=== PATIENT | female | born 1995 | race Caucasian/White ===

== ENCOUNTER 2021-03-24 13:12 | Emergency (ER) | payer OTHER, SELFPAY ==
--- NOTE | 2021-03-24 13:17 | ED.URI ---
HPI - URI/Sore Throat General Chief Complaint: Upper Respiratory Infection Stated Complaint: sore throat/cough/body aches/chills/light headed Time Seen by Provider: 03/24/21 13:17 Source: patient and RN notes reviewed History of Present Illness HPI Narrative: Patient is a 25-year-old female who presents the urgent care with complaints of sore throat, chills, lightheadedness, postnasal drainage, headache and cough. Patient states that her symptoms started on Tuesday. 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 Patient was also tested today however will not obtain her results for couple days. Patient is tested twice weekly. Patient has also had the maternal vaccine. Denies of any known fevers, nausea, vomiting. Denies of any known contact with Covid. No other acute complaints. No acute distress noted. Patient aware of plan of care. Some parts of this dictation were generated by voice recognition software and may contain typographical and/or grammatical inaccuracies. Related Data Allergies Allergy/AdvReac Type Severity Reaction Status Date / Time sulfamethoxazole Allergy Unknown HIVES Verified 10/21/17 13:57 trimethoprim Allergy Unknown HIVES Verified 10/21/17 13:57 Review of Systems Review of Systems: CONSTITUTIONAL: Reports of chills EYES: Denies visual changes, redness, or discharge. ENT: Reports of sore throat, postnasal drainage CARDIOVASCULAR: Denies chest pain, palpitations, or edema. RESPIRATORY: Ports of cough without dyspnea GASTROINTESTINAL: Denies abdominal pain, nausea, vomiting, or diarrhea. GENITOURINARY: Denies dysuria or hematuria. SKIN: Denies rash or itching. MUSCULOSKELETAL: Denies back pain, joint pain, or myalgia. NEUROLOGIC: Reports of lightheadedness All other systems reviewed are negative, except as documented in HPI. PMFSH Comments At the time of my signature, I reviewed and agree with the nursing past medical, surgical, social, and family history. There is no relevant family history pertinent to the patient complaint. Exam Narrative: GENERAL: This is a well-nourished, well-developed patient, in no apparent distress. HEAD: normocephalic, atraumatic. EYES: PERRL. Sclera clear/white. Vision is grossly intact. EARS: External ears normal, auditory canals clear and without drainage, TMs normal without perforation. Hearing grossly intact. NOSE: External nose normal with no obvious nasal discharge, nares without redness, clear rhinorrhea. THROAT: Mucous membranes moist, posterior pharynx clear. Moderate postnasal drainage NECK: Neck supple, non-tender without lymphadenopathy, masses or thyromegaly. CARDIOVASCULAR: Regular rate and rhythm without murmurs, gallops, or rubs. RESPIRATORY: Clear to auscultation. Breath sounds equal bilaterally. No wheezes, rales, or rhonchi. Mild cough on exam with deep breathing SKIN: warm, intact with no suspicious lesions or rash, good texture and turgor. NEURO: awake, alert, and oriented to person, place and time. There were no obvious focal neurologic abnormalities. EXTREMITIES: No clubbing, cyanosis, or edema. Course Vital Signs Vital signs: Vital Signs Temperature 97.9 F 03/24/21 13:18 Pulse Rate 96 03/24/21 13:18 Respiratory Rate 16 03/24/21 13:18 Blood Pressure 128/78 03/24/21 13:18 Pulse Oximetry 100 03/24/21 13:18 Temperature 97.9 F 03/24/21 13:18 Pulse Rate 96 03/24/21 13:18 Respiratory Rate 16 03/24/21 13:18 Blood Pressure 128/78 03/24/21 13:18 Pulse Oximetry 100 03/24/21 13:18 Reviewed MDM - URI/Sore Throat MDM Narrative Medical decision making narrative: Reviewed lab results with the patient. She is aware that strep swab was negative. Educated patient on culture we will call within 72 hours if culture is positive and antibiotics are necessary. Rapid Covid test was also negative. Advised the patient to complete the steroid regimen as pres
[2021-03-24 13:18] VITALS: BP 128/78; PULSE 96; RESP 16; TEMP 36.6; O2SAT 100
== END 2021-03-24 13:42 | disposition home or self-care (01) ==
PROVIDERS: Emergency Provider Nurse Practitioner Family
DX: J06.9 Acute upper respiratory infection, unspecified (principal); Z20.822 Contact with and (suspected) exposure to COVID-19
CPT/HCPCS: 87081; 87426; 87880; 99203; C9803; G0463

== ENCOUNTER 2022-01-12 11:10 | Outpatient (CLI) | payer OTHER, SELFPAY ==
[2022-01-12 11:37] VITALS: BP 126/85; PULSE 100
[2022-01-12 11:46] VITALS: BP 112/84; PULSE 91
[2022-01-12 11:50] LABS: Basophils Percent Auto 0.3 % (0.2-1.2); Eosinophils Absolute Auto 0.1 K/mm3 (0-0.3); Eosinophils Percent Auto 0.8 % (0-4.4); Hematocrit 32.2 % (37.0-47.0); Hemoglobin 10.8 g/dL (12.0-15.0); Immature Granulocyte Absolute 0.08 K/mm3 (0.00-0.031); Immature Granulocyte Percent A 0.9 % (0-0.5); Lymphocytes Absolute Auto 1.53 K/mm3 (0.9-3.2); Lymphocytes Percent Auto 17.8 % (18.3-44.2); Mean Corpuscular HGB Conc 33.5 g/dl (32-36); Mean Corpuscular Hemoglobin 29.2 pg (26-34); Mean Platelet Volume 11.3 fl (7.4-10.4); Monocytes Absolute Auto 0.6 K/mm3 (0.1-0.6); Monocytes Percent Auto 6.5 % (2.6-8.5); Neutrophils Absolute Auto 6.3 K/mm3 (1.3-6.7); Neutrophils Percent Auto 73.7 % (45.5-73.1); Platelet Count Result 247 k/mm3 (150-375); Red Cell Distribution Width 13.6 % (11.5-14.5); White Blood Count 8.6 K/mm3 (4.5-10.0)
[2022-01-12 11:51] LABS: Appearance Urine Slightly Cloudy (Clear); Bilirubin Urine Negative (Negative); Blood Urine Negative (Negative); Glucose Urine UA Negative (Negative); Ketones Urine Negative (Negative); Leukocyte Esterase Ur Trace LEU/UL (NEGATIVE); Nitrate Urine Negative (Negative); Protein Urine Negative (Negative); Specific Grav Ur 1.015 (1.001-1.035); Urobilinogen Urine 0.2 mg/dL (<2.0); pH Urine 7.5 (5.0-9.0)
[2022-01-12 11:55] VITALS: BP 131/87; PULSE 80
[2022-01-12 11:55] LABS: Creatinine Urine 69.6 mg/dL; Total Protein Urine Random 20 mg/dL; Ur Ttl Prot Creatinine Ratio 0.29 mg/mg (0-0.20)
[2022-01-12 11:58] LABS: Bacteria Urine Trace /hpf; Mucus Urine Rare /lpf; RBC Urine 0-2 /hpf (0-2); Squamous Epithelial Cell Urine Few /hpf (Few); WBC Urine 0-3 /hpf (0-3)
[2022-01-12 11:59] LABS: Add Urine Microscopic? YES; Color Urine Light Yellow (Yellow)
[2022-01-12 12:01] VITALS: BP 123/84; PULSE 81
[2022-01-12 12:01] LABS: Alanine Aminotransferase 15 U/L (6-35); Albumin Level 3.4 g/dL (3.5-5.1); Alkaline Phosphatase 154 U/L (38-126); Anion Gap 8 mmol/L (8-16); Aspartate Amino Transferase 20 U/L (14-36); Bilirubin,Total 0.1 mg/dL (0.2-1.3); Blood Urea Nitrogen 6 mg/dL (7-17); Calcium 8.9 mg/dL (8.4-10.2); Carbon Dioxide 19 mmol/L (22-30); Chloride 107 mmol/L (98-107); Estimated Glomerular Filt Rate > 60; Glucose 107 mg/dL (65-110); Potassium 3.3 mmol/L (3.4-5.0); Sodium 134 mmol/L (137-145); Uric Acid 5.2 mg/dL (2.5-7.5)
== END 2022-01-12 12:15 | disposition home or self-care (01) ==
LOC: ANHOBOP 11:13 → ANHOBPP 11:16
PROVIDERS: Visit Provider Obstetrics & Gynecology
DX: O13.9 Gestational [pregnancy-induced] hypertension without significant proteinuria, unspecified trimester (principal); Z3A.00 Weeks of gestation of pregnancy not specified
CPT/HCPCS: 36415; 59025; 80053; 81001; 82570; 84156; 84550; 85025; 87086; 87088; 99199

== ENCOUNTER 2022-01-13 10:00 | Outpatient (CLI) | payer OTHER, SELFPAY ==
[2022-01-13] VITALS (23 sets, daily range): BP systolic 109–129; BP diastolic 72–86; PULSE 76–95; O2SAT 98–100; BMI 37.3
[2022-01-13 11:08] LABS: Basophils Percent Auto 0.3 % (0.2-1.2); Eosinophils Absolute Auto 0.1 K/mm3 (0-0.3); Eosinophils Percent Auto 0.9 % (0-4.4); Hematocrit 31.3 % (37.0-47.0); Hemoglobin 10.4 g/dL (12.0-15.0); Immature Granulocyte Absolute 0.11 K/mm3 (0.00-0.031); Immature Granulocyte Percent A 1.2 % (0-0.5); Lymphocytes Percent Auto 17.6 % (18.3-44.2); Mean Corpuscular HGB Conc 33.2 g/dl (32-36); Mean Corpuscular Hemoglobin 29.1 pg (26-34); Mean Corpuscular Volume 87.7 fl (80-100); Mean Platelet Volume 11.4 fl (7.4-10.4); Monocytes Absolute Auto 0.5 K/mm3 (0.1-0.6); Monocytes Percent Auto 5.5 % (2.6-8.5); Neutrophils Absolute Auto 6.8 K/mm3 (1.3-6.7); Neutrophils Percent Auto 74.5 % (45.5-73.1); Platelet Count Result 236 k/mm3 (150-375); Red Blood Count 3.57 M/mm3 (4.2-5.4); Red Cell Distribution Width 13.5 % (11.5-14.5); White Blood Count 9.1 K/mm3 (4.5-10.0)
[2022-01-13 11:17] LABS: Alanine Aminotransferase 14 U/L (6-35); Albumin Level 3.4 g/dL (3.5-5.1); Alkaline Phosphatase 162 U/L (38-126); Anion Gap 5 mmol/L (8-16); Aspartate Amino Transferase 18 U/L (14-36); Bilirubin,Total 0.2 mg/dL (0.2-1.3); Blood Urea Nitrogen 5 mg/dL (7-17); Calcium 7.8 mg/dL (8.4-10.2); Carbon Dioxide 22 mmol/L (22-30); Chloride 108 mmol/L (98-107); Estimated Glomerular Filt Rate > 60; Glucose 86 mg/dL (65-110); Potassium 3.4 mmol/L (3.4-5.0); Sodium 135 mmol/L (137-145)
[2022-01-13 11:21] LABS: Creatinine Urine 73.3 mg/dL; Total Protein Urine Random 13 mg/dL; Ur Ttl Prot Creatinine Ratio 0.18 mg/mg (0-0.20)
[2022-01-13] MEDS: ACETAMINOPHEN 500 MG TABLET 1000 MG PO (11:40)
== END 2022-01-13 12:45 | disposition home or self-care (01) ==
LOC: ANHOBOP 10:05 → ANHOBPP 10:13
PROVIDERS: Visit Provider Obstetrics & Gynecology
DX: O13.9 Gestational [pregnancy-induced] hypertension without significant proteinuria, unspecified trimester (principal); Z3A.00 Weeks of gestation of pregnancy not specified
CPT/HCPCS: 36415; 59025; 80053; 82570; 84156; 84550; 85025; 99199; A9270

== ENCOUNTER 2022-01-14 10:31 | Outpatient (CLI) | payer OTHER, SELFPAY ==
[2022-01-14 10:55] VITALS: BP 123/84; PULSE 97
--- NOTE | 2022-01-14 10:58 | PM.OBTRLD ---
OB - Triage/Final Diagnosis Visit Information Date of evaluation: 01/14/22 Reason for evaluation: other (hypertension) Comments/Additional reasons for admission: I have assessed the risk for this patient, Lani Beasley, and determined that she would benefit from observation care. Evaluation Vital signs: Vital Signs - 24 hr 01/14/22 10:55 Pulse Rate 97 Blood Pressure 123/84
[2022-01-14 11:00] VITALS: BP 107/63; PULSE 104
[2022-01-14 11:15] VITALS: BP 105/78; PULSE 96
--- NOTE | 2022-01-14 11:26 | PC.NURSE ---
Spoke with Dr. Zay Parra regarding Fiorcet order that wa call in initial orders. Pt is driving. Will transmit Fioricet order for pt to take at home.
[2022-01-14 11:30] VITALS: BP 108/79; PULSE 88
[2022-01-14] MEDS: ACETAMINOPHEN/BUTALBITAL/CAFFEINE 325-50-40 MG TABLET (FIORICET) 1 TAB PO (13:00)
--- NOTE | 2022-01-14 13:00 | PC.NURSE ---
RX per MD is not on Formulary for insurance. Pt advised. Pt to take Fioricet given here on arrival home and call MD in AM if headache persists.
== END 2022-01-14 13:30 | disposition home or self-care (01) ==
LOC: ANHOBOP 10:41 → ANHOBPP 10:41
PROVIDERS: Visit Provider Obstetrics & Gynecology
DX: O13.9 Gestational [pregnancy-induced] hypertension without significant proteinuria, unspecified trimester (principal); Z3A.00 Weeks of gestation of pregnancy not specified
CPT/HCPCS: 59025; 99199; A9270

== ENCOUNTER 2022-01-19 17:59 | Inpatient (IN) | payer OTHER, SELFPAY ==
[2022-01-19] VITALS (12 sets, daily range): BP systolic 102–130; BP diastolic 61–96; PULSE 75–92; RESP 18; TEMP 36.4; BMI 36.1
[2022-01-19 19:30] LABS: Basophils Absolute Auto 0.1 K/mm3 (0.0-0.1); Basophils Percent Auto 0.5 % (0.2-1.2); Eosinophils Absolute Auto 0.1 K/mm3 (0-0.3); Eosinophils Percent Auto 0.8 % (0-4.4); Hematocrit 32.5 % (37.0-47.0); Immature Granulocyte Absolute 0.13 K/mm3 (0.00-0.031); Immature Granulocyte Percent A 1.2 % (0-0.5); Mean Corpuscular HGB Conc 33.8 g/dl (32-36); Mean Corpuscular Hemoglobin 28.9 pg (26-34); Mean Corpuscular Volume 85.5 fl (80-100); Mean Platelet Volume 11.5 fl (7.4-10.4); Monocytes Absolute Auto 0.7 K/mm3 (0.1-0.6); Monocytes Percent Auto 6.2 % (2.6-8.5); Neutrophils Absolute Auto 7.5 K/mm3 (1.3-6.7); Neutrophils Percent Auto 71.3 % (45.5-73.1); Platelet Count Result 276 k/mm3 (150-375); Red Cell Distribution Width 13.8 % (11.5-14.5); White Blood Count 10.5 K/mm3 (4.5-10.0)
[2022-01-19] MEDS: DINOPROSTONE 10 MG VAG INSERT VAGINAL (19:36)
[2022-01-19 19:39] LABS: Uric Acid 4.6 mg/dL (2.5-7.5)
[2022-01-19 19:53] LABS: Alanine Aminotransferase 16 U/L (6-35); Albumin Level 3.6 g/dL (3.5-5.1); Alkaline Phosphatase 165 U/L (38-126); Anion Gap 9 mmol/L (8-16); Aspartate Amino Transferase 21 U/L (14-36); Bilirubin,Total 0.2 mg/dL (0.2-1.3); Blood Urea Nitrogen 7 mg/dL (7-17); Calcium 9.3 mg/dL (8.4-10.2); Carbon Dioxide 20 mmol/L (22-30); Chloride 106 mmol/L (98-107); Estimated Glomerular Filt Rate > 60; Glucose 92 mg/dL (65-110); Potassium 3.6 mmol/L (3.4-5.0); Sodium 135 mmol/L (137-145)
[2022-01-19] MEDS: FAMOTIDINE 20 MG TABLET PO (20:20)
--- NOTE | 2022-01-19 21:30 | WPDANESEPP ---
Anes - Eval Pre Procedure Procedure: Labor epidural Date/Time: 01/19/22 21:30 Surgeon: Zay Parra Preop Diagnosis: Abd pain with contractions Pre Op Diagnosis: Induction of Labor Patient Data Age: 26 Gender: F Height: 1.73 m Weight: 108 kg Last Vital Signs Pulse 87 01/19/22 21:15 BP 111/61 01/19/22 21:15 Allergies Allergy/AdvReac Type Severity Reaction Status Date / Time sulfamethoxazole Allergy Unknown HIVES Verified 10/21/17 13:57 Home Medications Medication Instructions Recorded Confirmed Type No Home Medications 01/04/22 01/04/22 History Laboratory Tests 01/19/22 01/19/22 01/19/22 19:19 19:19 19:19 WBC 10.5 K/mm3 H K/mm3 (4.5-10.0) RBC 3.80 M/mm3 L M/mm3 (4.2-5.4) Hgb 11.0 g/dL L g/dL (12.0-15.0) Hct 32.5 % L % (37.0-47.0) MCV 85.5 fl fl (80-100) MCH 28.9 pg pg (26-34) MCHC 33.8 g/dl g/dl (32-36) RDW 13.8 % % (11.5-14.5) Plt Count 276 k/mm3 k/mm3 (150-375) MPV 11.5 fl H fl (7.4-10.4) Immature Gran % (Auto) 1.2 % H % (0-0.5) Neut % (Auto) 71.3 % % (45.5-73.1) Lymph % (Auto) 20.0 % % (18.3-44.2) [place] % (Auto) 6.2 % % (2.6-8.5) Eos % (Auto) 0.8 % % (0-4.4) Baso % (Auto) 0.5 % % (0.2-1.2) Lymph # (Auto) 2.10 K/mm3 K/mm3 (0.9-3.2) [place] # (Auto) 0.7 K/mm3 H K/mm3 (0.1-0.6) Eos # (Auto) 0.1 K/mm3 K/mm3 (0-0.3) Baso # (Auto) 0.1 K/mm3 K/mm3 (0.0-0.1) Abs Immat Gran (auto) 0.13 K/mm3 H K/mm3 (0.00-0.031) Absolute Neuts (auto) 7.5 K/mm3 H K/mm3 (1.3-6.7) Absolute Nucleated RBC 0.0 K/mm3 K/mm3 (0.0-0.012) Nucleated RBC % 0.0 % % (0.0-0.2) Sodium 135 mmol/L L mmol/L (137-145) Potassium 3.6 mmol/L mmol/L (3.4-5.0) Chloride 106 mmol/L mmol/L (98-107) Carbon Dioxide 20 mmol/L L mmol/L (22-30) Anion Gap 9 mmol/L mmol/L (8-16) BUN 7 mg/dL mg/dL (7-17) Creatinine 0.60 mg/dL L mg/dL (0.7-1.0) Estim Creat Clear Calc Not Reportable Estimated GFR > 60 (59 - ) Glucose 92 mg/dL mg/dL (65-110) Uric Acid 4.6 mg/dL mg/dL (2.5-7.5) Calcium 9.3 mg/dL mg/dL (8.4-10.2) Total Bilirubin 0.2 mg/dL mg/dL (0.2-1.3) AST 21 U/L U/L (14-36) ALT 16 U/L U/L (6-35) Alkaline Phosphatase 165 U/L H U/L (38-126) Total Protein 7.0 g/dL g/dL (6.3-8.2) Albumin 3.6 g/dL g/dL (3.5-5.1) RPR Blood Type Antibody Screen 01/19/22 01/19/22 19:20 19:20 WBC RBC Hgb Hct MCV MCH MCHC RDW Plt Count MPV Immature Gran % (Auto) Neut % (Auto) Lymph % (Auto) [place] % (Auto) Eos % (Auto) Baso % (Auto) Lymph # (Auto) [place] # (Auto) Eos # (Auto) Baso # (Auto) Abs Immat Gran (auto) Absolute Neuts (auto) Absolute Nucleated RBC Nucleated RBC % Sodium Potassium Chloride Carbon Dioxide Anion Gap BUN Creatinine Estim Creat Clear Calc Estimated GFR Glucose Uric Acid Calcium Total Bilirubin AST ALT Alkaline Phosphatase Total Protein Albumin RPR Pending Blood Type O Positive Antibody Screen Negative Patient hx anesthesia problems: none Family hx anesthesia problems: none Results Review: All pre-operative results and documents have been reviewed as part of the pre-operative evaluation. [facility] Past
[2022-01-20] VITALS (188 sets, daily range): BP systolic 71–254; BP diastolic 51–212; PULSE 65–264; RESP 18; TEMP 36.1–36.6; O2SAT 95–100
[2022-01-20] MEDS: LACTATED RINGERS 1,000 ML 125 ML IV CONT ×3 (05:57→14:23)
[2022-01-20] MEDS: OXYTOCIN 30 UNITS/NS 500 ML 30 UNITS/500 ML BAG 6 UNITS IV CONT (05:58)
--- NOTE | 2022-01-20 06:24 | PM.IMHP ---
H&P: HPI History of Present Illness Date/Time: 01/20/22 06:24 Chief Complaint: Elevated blood pressure at term Narrative: 26-year-old 1 para 0 with an EDC of 02/03/2022 confirmed by 7 week ultrasound presents at 38 weeks gestation for induction of labor secondary to elevated blood pressures. She is negative for group B strep. Her cervix is unfavorable. Her blood pressures have been rising with normal PIH labs. [facility] Past Medical History Medical History Anxiety and depression Endometriosis Migraines Obesity and not yet delivered Family History Family History Grandparent Diabetes mellitus Social History Social History Smoking status: Never smoker Second hand tobacco smoke exposure: No Substance use: never Spiritual care concerns: No Meds Home Medications and Allergies Home Medications Medication Instructions Recorded Confirmed Type No Home Medications 01/04/22 01/04/22 History Allergies Allergy/AdvReac Type Severity Reaction Status Date / Time sulfamethoxazole Allergy Unknown HIVES Verified 10/21/17 13:57 Vital Signs Vital Signs - 24 hr 01/19/22 19:42 01/19/22 19:45 01/19/22 20:00 Temperature Pulse Rate 78 92 76 Respiratory Rate Blood Pressure 130/90 118/96 H 123/93 H Pulse Oximetry 01/19/22 20:15 01/19/22 20:30 01/19/22 20:45 Temperature Pulse Rate 92 84 84 Respiratory Rate Blood Pressure 102/68 105/66 106/74 Pulse Oximetry 01/19/22 21:00 01/19/22 21:15 01/19/22 21:30 Temperature Pulse Rate 75 87 88 Respiratory Rate Blood Pressure 108/71 111/61 106/74 Pulse Oximetry 01/19/22 22:21 01/20/22 00:53 01/20/22 01:45 Temperature Pulse Rate 78 70 81 Respiratory Rate Blood Pressure 110/76 113/63 124/83 Pulse Oximetry 01/20/22 04:04 01/20/22 04:27 01/19/22 18:37 Temperature 97.9 F 97.6 F Pulse Rate 79 Respiratory Rate 18 18 Blood Pressure 111/64 Pulse Oximetry 98 01/19/22 20:20 01/20/22 02:20 01/20/22 05:29 Temperature 97.5 F L 97.6 F Pulse Rate 88 Respiratory Rate 18 18 Blood Pressure 123/86 Pulse Oximetry 01/20/22 05:28 01/20/22 05:30 01/20/22 05:45 Temperature 97.8 F Pulse Rate 92 88 Respiratory Rate 18 Blood Pressure 122/79 118/84 Pulse Oximetry 01/20/22 06:02 Temperature Pulse Rate 89 Respiratory Rate Blood Pressure 124/91 H Pulse Oximetry Exam : Speculum Exam - Vagina: normal appearance of the vagina Speculum Exam - Cervix: normal appearance of the cervix ( /. AROM clear. FHTs reassuring) H&P: Results Labs Labs: Short CBC 01/19/22 Range/Units 19:19 WBC 10.5 H (4.5-10.0) K/mm3 Hgb 11.0 L (12.0-15.0) g/dL Hct 32.5 L (37.0-47.0) % Plt Count 276 (150-375) k/mm3 BMP 01/19/22 19:19 Sodium 135 L Potassium 3.6 Chloride 106 Carbon Dioxide 20 L BUN 7 Creatinine 0.60 L Glucose 92 Calcium 9.3 Liver Function 01/19/22 Range/Units 19:19 Total Bilirubin 0.2 (0.2-1.3) mg/dL AST 21 (14-36) U/L ALT 16 (6-35) U/L Alkaline Phosphatase 165 H (38-126) U/L Albumin 3.6 (3.5-5.1) g/dL Assessment and Plan Assessment and plan (1) Gestational hypertension: Code(s): O13.9 - Gestational [-induced] hypertension without significant proteinuria, unspecified trimester Status: Acute (2) Term : Code(s): Z34.90 - Encounter for supervision of normal , unspecified, unspecified trimester Status: Acute Plan medical induction of labor. Spontaneous vaginal delivery is expected. She is an epidural candidate. [facility] labs are normal
--- NOTE | 2022-01-20 07:20 | WPDANESEPPF ---
Anes - Initial Pre Proc Eval Procedure: labor epidural Date/Time: 01/20/22 07:20 Surgeon: Jose Antonio Parra MD Pre Op Diagnosis: labor pain Pre Op Diagnosis: Induction of Labor Patient Data Age: 26 Gender: F Height: 1.73 m Weight: 108 kg Last Vital Signs Temp 36.6 C 01/20/22 06:58 Pulse 93 01/20/22 07:19 Resp 18 01/20/22 05:28 BP 121/82 01/20/22 07:19 Pulse Ox 98 01/20/22 07:16 Allergies Allergy/AdvReac Type Severity Reaction Status Date / Time sulfamethoxazole Allergy Unknown HIVES Verified 10/21/17 13:57 Home Medications Medication Instructions Recorded Confirmed Type No Home Medications 01/04/22 01/04/22 History Laboratory Tests 01/19/22 01/19/22 01/19/22 19:19 19:19 19:19 WBC 10.5 K/mm3 H K/mm3 (4.5-10.0) RBC 3.80 M/mm3 L M/mm3 (4.2-5.4) Hgb 11.0 g/dL L g/dL (12.0-15.0) Hct 32.5 % L % (37.0-47.0) MCV 85.5 fl fl (80-100) MCH 28.9 pg pg (26-34) MCHC 33.8 g/dl g/dl (32-36) RDW 13.8 % % (11.5-14.5) Plt Count 276 k/mm3 k/mm3 (150-375) MPV 11.5 fl H fl (7.4-10.4) Immature Gran % (Auto) 1.2 % H % (0-0.5) Neut % (Auto) 71.3 % % (45.5-73.1) Lymph % (Auto) 20.0 % % (18.3-44.2) [place] % (Auto) 6.2 % % (2.6-8.5) Eos % (Auto) 0.8 % % (0-4.4) Baso % (Auto) 0.5 % % (0.2-1.2) Lymph # (Auto) 2.10 K/mm3 K/mm3 (0.9-3.2) [place] # (Auto) 0.7 K/mm3 H K/mm3 (0.1-0.6) Eos # (Auto) 0.1 K/mm3 K/mm3 (0-0.3) Baso # (Auto) 0.1 K/mm3 K/mm3 (0.0-0.1) Abs Immat Gran (auto) 0.13 K/mm3 H K/mm3 (0.00-0.031) Absolute Neuts (auto) 7.5 K/mm3 H K/mm3 (1.3-6.7) Absolute Nucleated RBC 0.0 K/mm3 K/mm3 (0.0-0.012) Nucleated RBC % 0.0 % % (0.0-0.2) Sodium 135 mmol/L L mmol/L (137-145) Potassium 3.6 mmol/L mmol/L (3.4-5.0) Chloride 106 mmol/L mmol/L (98-107) Carbon Dioxide 20 mmol/L L mmol/L (22-30) Anion Gap 9 mmol/L mmol/L (8-16) BUN 7 mg/dL mg/dL (7-17) Creatinine 0.60 mg/dL L mg/dL (0.7-1.0) Estim Creat Clear Calc Not Reportable Estimated GFR > 60 (59 - ) Glucose 92 mg/dL mg/dL (65-110) Uric Acid 4.6 mg/dL mg/dL (2.5-7.5) Calcium 9.3 mg/dL mg/dL (8.4-10.2) Total Bilirubin 0.2 mg/dL mg/dL (0.2-1.3) AST 21 U/L U/L (14-36) ALT 16 U/L U/L (6-35) Alkaline Phosphatase 165 U/L H U/L (38-126) Total Protein 7.0 g/dL g/dL (6.3-8.2) Albumin 3.6 g/dL g/dL (3.5-5.1) RPR Blood Type Antibody Screen 01/19/22 01/19/22 19:20 19:20 WBC RBC Hgb Hct MCV MCH MCHC RDW Plt Count MPV Immature Gran % (Auto) Neut % (Auto) Lymph % (Auto) [place] % (Auto) Eos % (Auto) Baso % (Auto) Lymph # (Auto) [place] # (Auto) Eos # (Auto) Baso # (Auto) Abs Immat Gran (auto) Absolute Neuts (auto) Absolute Nucleated RBC Nucleated RBC % Sodium Potassium Chloride Carbon Dioxide Anion Gap BUN Creatinine Estim Creat Clear Calc Estimated GFR Glucose Uric Acid Calcium Total Bilirubin AST ALT Alkaline Phosphatase Total Protein Albumin RPR Pending Blood Type O Positive Antibody Screen Negative Patient hx anesthesia problems: none Family hx anesthesia problems: none Results Review: All pre-operative results
[2022-01-20] MEDS: ONDANSETRON INJ 4 MG/2 ML VIAL IV PUSH ×2 (07:59→14:21)
[2022-01-20 09:19] LABS: Rapid Plasma Reagin Non-Reactive (NonReactive)
[2022-01-20] MEDS: SODIUM CHLORIDE 0.9% IV 200 ML 400 ML I-UTERINE (15:20)
--- NOTE | 2022-01-20 16:02 | PM.OBPNLAB ---
Pain Control Date/time seen: 01/20/22 16:02 Pain control: tolerating well and epidural Pelvic Exam Dilation (cm): 10 Effacement (%): 100 station: +1 Amniotic membrane status: Ruptured Contractions Monitor mode: Internal
--- NOTE | 2022-01-20 16:48 | PM.OBPRVD ---
OB - Delivery Note Procedure Delivery date: 01/20/22 Procedure: mil Events: Gestational Hypertension Induction method: AROM Delivery augmentation: Pitocin Delivery monitor: External FHT and Internal Uterine Route of delivery: Episiotomy description: None Laceration Description: Perineal - 1st Degree Delivery repair: vicryl Specimen: No Quantitative Blood Loss (ml): 259 Anesthesia type: Local Disposition: Floor Jumping [place] Baby Date of : 01/20/22 Time of : 16:32 Weeks of gestation at delivery: 39 gender: Female Weight (pounds): 6 Weight (ounces): 14 presentation: vertex position: Right Occiput Anterior Placenta delivery description: Spontaneous Cord Vessel Description: 3 Vessels score one minute: 8 score five minutes: 9
[2022-01-20] MEDS: IBUPROFEN 600 MG TABLET PO (17:25)
[2022-01-20] MEDS: ACETAMINOPHEN 325 MG TABLET 650 MG PO (18:07)
[2022-01-20] MEDS: BENZOCAINE 20% AER SPR (*SP) 56 GM CAN 1 SPRAY TOPICAL (18:09)
[2022-01-20] MEDS: WITCH HAZEL 40 PADS 1 PAD TOPICAL (18:09)
--- NOTE | 2022-01-20 19:02 | PC.NURSE ---
Patient transferred to post room #291 per wheelchair from labor and delivery. Support person present. Oriented to unit, room, information board, rooming in, admission packet and security measures. Patient verbalizes understanding.
[2022-01-20] MEDS: DOCUSATE SODIUM 100 MG CAPSULE PO (22:50)
[2022-01-21 00:25] VITALS: BP 133/74; PULSE 103; RESP 18; TEMP 36.6
[2022-01-21 04:40] VITALS: BP 103/64; PULSE 91; RESP 16; TEMP 36.8
[2022-01-21 05:11] LABS: Hematocrit 25.8 % (37.0-47.0); Hemoglobin 8.9 g/dL (12.0-15.0)
--- NOTE | 2022-01-21 06:21 | P.PNOB_ITS ---
OB - PN: Subj Subjective Date/time seen: 01/21/22 06:21 Patient comments: no complaints, pain well controlled and flatus present [place] baby status: doing well and nursing well OB - PN: Obj Data Labs CBC & Chem 7: 01/21/22 04:46 01/19/22 19:19 Labs: Laboratory Results - last 24 hr 01/19/22 01/21/22 19:20 04:46 Hgb 8.9 L Hct 25.8 L RPR Non-reactive OB - PN A/P Assessment and Plan (1) Gestational hypertension: Code(s): O13.9 - Gestational [-induced] hypertension without significant proteinuria, unspecified trimester Status: Acute (2) Term : Code(s): Z34.90 - Encounter for supervision of normal , unspecified, unspecified trimester Status: Acute Plan day: 1 Plan: routine care Time Spent With Patient Time: Total time spent is greater than 50% in coordination of care (as documented) at patient's floor/unit and/or counseling patient: Time with patient: less than 15 minutes
--- NOTE | 2022-01-21 06:41 | PM.DS ---
DS: Admitting Diagnosis Discharge Date Admitting Diagnosis term with gestational hypertension DS: Discharge Diagnosis Discharge Diagnosis (1) Gestational hypertension: Code(s): O13.9 - Gestational [-induced] hypertension without significant proteinuria, unspecified trimester Status: Acute (2) Term : Code(s): Z34.90 - Encounter for supervision of normal , unspecified, unspecified trimester Status: Acute DS: Summary Hospital Course Reason for hospitalization: induction labor at term secondary to elevated blood pressure Hospital Course: patient was admitted for induction of labor at term for elevated blood pressure she underwent spontaneous vaginal delivery. The her hospital course was unremarkable. She remained afebrile. She was up, voiding difficulty ambulating voiding difficulty and generally without complaints Time Spent with Patient Time attestation: Total time spent providing and/or coordinating discharge services: DS: Data Data Completed and Pending Labs on day of discharge: Labs from last 24 hours 01/21/22 01/19/22 04:46 19:20 Hgb 8.9 L Hct 25.8 L RPR Non-reactive Discharge Plan Discharge Attending physician on discharge: Jose Antonio Black Discharging Clinician: Jose Antonio Black Patient Disposition: Home, Self-Care Activity: may shower, no straining and pelvic rest Diet: heart healthy Wound Care Instructions: follow printed instructions Patient Instructions: Antibiotic Form Stand Alone Forms: General Discharge Information Follow-up/Referrals: Jose Antonio Black MD [Physician] - Discharge Medications: No Action No Home Medications Date of admission: 01/19/22 17:59 Primary Care Provider: PHYSICIAN NOT ON STAFF,NONSTAFF Admitting Provider: Jose Antonio Black Attending physician on admission: Jose Antonio Black Condition: Stable
[2022-01-21 07:45] VITALS: BP 124/78; PULSE 88; RESP 18; TEMP 36.2; O2SAT 100
--- NOTE | 2022-01-21 08:47 | PC.NURSE ---
Received report of mother on a feeding plan and mother desires to go home at 24 hours.
[2022-01-21] MEDS: DOCUSATE SODIUM 100 MG CAPSULE PO ×2 (09:04→16:58)
[2022-01-21] MEDS: POLYSACCHARIDE IRON COMPLEX 150 MG CAPSULE PO ×2 (09:04→16:58)
[2022-01-21] MEDS: IBUPROFEN 600 MG TABLET PO ×2 (09:05→16:58)
--- NOTE | 2022-01-21 09:59 | PC.NURSE ---
[id number] Introductions were made, then consulted with patient to assess needs related to . Mother led the conversation with her experience feeding her so far. She has attempted to breastfeed infant with a nipple shield with no effective latch and plans to supplement and pump. Breast assessment visualizes smooth nipples and a small bruise on areola above the nipple area. Mother works well with her with encouragement and education. Encouraged understanding of the benefits of skin to skin (unwrapping infant and placing vertically on her chest), responsive feeding and how to watch for early feeding signs, frequency of feeding on demand about every 8-12 times in 24 hours (every 2-3 hours), milk production, duration of feeding, signs of adequate intake/output and how to record on the feeding sheet. Reviewed positioning and ear, shoulder, hip alignment, supporting the breast, asymmetrical latch (off-center), and leading with the chin with a big open side gape. is sleepy and reluctant and on rare moments demonstrates feeding cues, then after is led to the breast falls asleep. Family shown stimulation techniques to encouraged to wake to feed. Nipple care reviewed with optimal latch and good positioning. Encouraged mother to pump to comfort every 3 hours 1-2 times at night for milk production. Assisted mother with supplementing with bottle. is a poor plywood layup line back feeder, sucks rarely and at times the formula rolls out of 's mouth. Nipple shield provided prior to shift to mother due to ineffective . Reviewed good handwashing, cleaning the nipple shield and application. Discussed with mom the nipple shield precautions, possible complications associated with the risks and benefits. Reviewed practicing with a nipple shield, then without and how to protect the milk supply and production. Mother is using her own personal pump from [employer] for pumping to stimulate milk production. Instructions given on cleaning, care, usage, that there should be no pain, pumping schedule for milk production, collection, and storage of human milk. Mother encouraged to pump every 3 hours (8 times in 24 hours 1-2 times at night). Mom voiced understanding of the importance of hand expression and shared that she has expressed some colostrum. Resources used to facilitate learning were used with the mom and baby guide. Mother voiced understanding of responsive feedings, stimulating with skin to skin, hand expressed colostrum, touch, talking to to encourage if it has been 2 -3 hours since the start of the last , to call if does not latch or there is discomfort with . Reported to the primary RN.
--- NOTE | 2022-01-21 11:31 | PC.NURSE ---
[id number] RN called to the room for assistance with pumped human milk questions. RN assisted parents with collection of human milk, educating with syringe feeding infant while sucking on a clean finger. Father of baby demonstrates understanding. Parents choose to supplement formula with a syringe as well. Discussed, paced bottle feeding as an option. RN suggested hand expression or pumping to stimulate the breast prior to attempting to breastfeed. Parents voiced understanding the education and calling for assistance if doesn't wake to feed, doesn't latch to the breast or there is pain with latching. Reported to primary RN.
[2022-01-21] MEDS: ACETAMINOPHEN 325 MG TABLET 650 MG PO ×2 (11:58→16:59)
[2022-01-21 12:07] VITALS: BP 112/69; PULSE 81; RESP 16; TEMP 36.1; O2SAT 99
--- NOTE | 2022-01-21 12:49 | WPDANLDPN2 ---
Anes-Prog Note L&D Date/Time: 01/21/22 12:49 Comfortable throughout: labor and delivery Epidural/Spinal procedure site: clean & non-tender Neuro status: Neuro function grossly intact. Cardiovascular status: normal Respiratory status: normal Airway patency: baseline Mental status: baseline Post-Op hydration status: normal Vital Signs: Last Vital Signs Temp 97 F L 01/21/22 12:07 Pulse 81 01/21/22 12:07 Resp 16 01/21/22 12:07 BP 112/69 01/21/22 12:07 Pulse Ox 99 01/21/22 12:07 O2 Del Method Room Air 01/20/22 19:10 Pain score (VAS): 0 I/O: Intake & Output 01/20/22 01/21/22 01/21/22 23:59 07:59 15:59 Intake Total 0 Output Total 374 Balance -374 Patient feedback: Patient satisfied with anesthetic care.
[2022-01-21 16:30] VITALS: BP 131/88; PULSE 84; RESP 16; TEMP 36.8
[2022-01-21] MEDS: FAMOTIDINE 20 MG TABLET PO ×2 (17:02→17:15)
[2022-01-21 20:40] VITALS: BP 122/83; PULSE 75; RESP 16; TEMP 36.3
[2022-01-22 07:35] VITALS: BP 122/75; PULSE 83; RESP 16; TEMP 36.3; O2SAT 99
[2022-01-22] MEDS: POLYSACCHARIDE IRON COMPLEX 150 MG CAPSULE PO (09:31)
[2022-01-22] MEDS: DOCUSATE SODIUM 100 MG CAPSULE PO (09:31)
[2022-01-22] MEDS: IBUPROFEN 600 MG TABLET PO (09:34)
[2022-01-22] MEDS: LANOLIN (LANSINOH) 7.5 GM CREAM 1 APPLIC TOPICAL (09:34)
[2022-01-25 08:15] VITALS: BP 131/86; PULSE 88; RESP 20; TEMP 37.4; O2SAT 98
--- NOTE | 2022-02-01 22:11 | P.PNOB_ITS ---
OB - Triage/Final Diagnosis Visit Information Reason for evaluation: threatened labor Comments/Additional reasons for admission: I have assessed the risk for this patient, Lani Beasley, and determined that she would benefit from observation care. Evaluation Laboratory results: Laboratory Tests 01/19/22 01/19/22 01/19/22 19:19 19:19 19:19 WBC 10.5 H RBC 3.80 L Hgb 11.0 L Hct 32.5 L MCV 85.5 MCH 28.9 MCHC 33.8 RDW 13.8 Plt Count 276 MPV 11.5 H Immature Gran % (Auto) 1.2 H Neut % (Auto) 71.3 Lymph % (Auto) 20.0 Crockett % (Auto) 6.2 Eos % (Auto) 0.8 Baso % (Auto) 0.5 Lymph # (Auto) 2.10 Crockett # (Auto) 0.7 H Eos # (Auto) 0.1 Baso # (Auto) 0.1 Abs Immat Gran (auto) 0.13 H Absolute Neuts (auto) 7.5 H Absolute Nucleated RBC 0.0 Nucleated RBC % 0.0 Sodium 135 L Potassium 3.6 Chloride 106 Carbon Dioxide 20 L Anion Gap 9 BUN 7 Creatinine 0.60 L Estim Creat Clear Calc Not Reportable Estimated GFR > 60 Glucose 92 Uric Acid 4.6 Calcium 9.3 Total Bilirubin 0.2 AST 21 ALT 16 Alkaline Phosphatase 165 H Total Protein 7.0 Albumin 3.6 RPR Blood Type Antibody Screen 01/19/22 01/19/22 01/21/22 19:20 19:20 04:46 WBC RBC Hgb 8.9 L Hct 25.8 L MCV MCH MCHC RDW Plt Count MPV Immature Gran % (Auto) Neut % (Auto) Lymph % (Auto) Crockett % (Auto) Eos % (Auto) Baso % (Auto) Lymph # (Auto) Crockett # (Auto) Eos # (Auto) Baso # (Auto) Abs Immat Gran (auto) Absolute Neuts (auto) Absolute Nucleated RBC Nucleated RBC % Sodium Potassium Chloride Carbon Dioxide Anion Gap BUN Creatinine Estim Creat Clear Calc Estimated GFR Glucose Uric Acid Calcium Total Bilirubin AST ALT Alkaline Phosphatase Total Protein Albumin RPR Non-reactive Blood Type O Positive Antibody Screen Negative
--- NOTE | 2022-02-10 07:18 | PM.DS ---
DS: Admitting Diagnosis Discharge Date 01/22/22 Admitting Diagnosis gestational hypertension DS: Discharge Diagnosis Discharge Diagnosis (1) Gestational hypertension: Code(s): O13.9 - Gestational [-induced] hypertension without significant proteinuria, unspecified trimester Status: Acute DS: Summary Hospital Course Reason for hospitalization: Headaches Hospital Course: Patient was admitted legs she was observed with normal pH labs she was to follow up in 1 week Time Spent with Patient Time attestation: Total time spent providing and/or coordinating discharge services: Discharge Plan Discharge Attending physician on discharge: Jose Antonio Black Consulting providers: Rashel Tuttle ; Maikel Perez ; Dianne Aguilar Discharging Clinician: Jose Antonio Black Patient Disposition: Home, Self-Care Activity: may shower, no straining and pelvic rest Diet: heart healthy Wound Care Instructions: follow printed instructions Discharge Instructions: Education: Mom and Baby Guide Given to: Mother Follow-Up: Call your delivering provider's office for an appointment to be seen in: 4-6 weeks Mom and baby should come to the [facility] for the follow-up appointment. Appointment Date/Time: January 25, 2022 at 8:00 am What to expect at your follow-up visit: Physical Assessment Call [phone] if you are unable to keep your appointment time. BREAST CARE: * Wear a snug supportive bra. * For engorgement discomfort: Breast Feeding: * Apply warm moist washcloths * Express milk as needed to relieve engorgement * Wear loose clothing * For sore nipples: * Identify correct latch-on * Apply warm moist washcloths before and after nursing * Air dry nipples after nursing * May apply Lansinoh cream to nipples PERINEAL CARE: * Until bleeding stops, use your penelope bottle after urinating * Change your pad frequently throughout the day * You may take sitz baths several times a day (fill your bathtub with warm water and soak for 20 minutes.) Do NOT bathe in the water * No tub baths until seen by your physician - You may shower ACTIVITY: * Rest as much as possible. * Do not exercise or lift anything heavier than your baby (such as laundry or other children.) * Avoid stairs or driving as much as possible. * Do not put anything into the vagina. No douching, tampons, or sexual activity until seen by physician. NOTIFY PHYSICIAN IF YOU HAVE ANY QUESTIONS OR IF ANY OF THE FOLLOWING SYMPTOMS OCCUR: * If your perineum becomes red, swollen, or more painful than what you have experienced in the hospital. * If your vaginal bleeding becomes foul smelling. * If your vaginal bleeding becomes more heavy than a period or if your bleeding changes from pink to bright red. However, you may pass an occasional walnut-sized clot once or twice for the first week . * If you experience a sharp, shooting pain in you calves. * If you discover a hard, reddened area on your breast or if you experience flu-like symptoms. DIET: * Eat regular, well-balanced meals. * Drink plenty of fluids daily. If , drink to thirst. Patient Instructions: Antibiotic Form Stand Alone Forms: General Discharge Information Follow-up/Referrals: Jose Antonio Black MD [Physician] - Other (4-6 weeks ) Discharge Medications: No Action No Home Medications Date of admission: 01/19/22 17:59 Primary Care Provider: PHYSICIAN NOT ON STAFF,NONSTAFF Admitting Provider: Jose Antonio Black Attending physician on admission: Jose Antonio Black Condition: Stable
== END 2022-01-22 11:26 | disposition home or self-care (01) | DRG 560 ==
LOC: ANHLDR 01-20 14:01 → ANHOB2 01-20 19:19
PROVIDERS: Admitting Provider Obstetrics & Gynecology; Visit Provider Obstetrics & Gynecology
DX: O76 Abnormality in fetal heart rate and rhythm complicating labor and delivery (principal); O99.214 Obesity complicating childbirth; O13.4 Gestational [pregnancy-induced] hypertension without significant proteinuria, complicating childbirth; O70.0 First degree perineal laceration during delivery; Z3A.38 38 weeks gestation of pregnancy; Z37.0 Single live birth
CPT/HCPCS: 36415; 80053; 84550; 85014; 85018; 85025; 86592; 86850; 86900; 86901; A9270; J2405; J2590; J2795; J7030; J7120

== ENCOUNTER 2023-07-03 21:07 | Emergency (ER) | payer OTHER, SELFPAY ==
--- NOTE | ~2023-07-03 | US_ITS ---
US OB transvaginal DATE: 07/04/2023 02:38 INDICATION: Vaginal bleeding and abdominal pain. First trimester gestation. TECHNIQUE: Real-time imaging via transvaginal approach COMPARISON: None FINDINGS: Possible early intrauterine gestational sac measuring 0.6 cm consistent with 5 weeks 2 days estimated gestational age. Definitive yolk sac or pole are not demonstrated. Findings may repr esent an early normal or failed gestation. Recommend correlation with beta hCG levels and follow-up p elvic ultrasound imaging. No ovarian or adnexal mass lesion is evident. There is vascular flow to both ovaries. No abnormal girish e fluid collection. IMPRESSION: Probable small early intrauterine gestational sac of the uterus, estimated gestational ag e of 5 weeks 2 days, without definite definitively demonstrated pole or yolk sac. Recommend clinical correlation to differentiate early normal from failed gestation. Reviewed, dictated and finalized at [facility]. Reviewed, dictated and finalized at [facility]. TERIA MANAGER IMPRESSION: Probable small early intrauterine gestational sac of the uterus, es timated gestational age of 5 weeks 2 days, without definite definitively demons trated pole or yolk sac. Recommend clinical correlation to differentiate early normal from alonso led gestation.
[2023-07-03 21:13] VITALS: BP 146/91; PULSE 108; RESP 19; TEMP 36.7; O2SAT 100
[2023-07-03 22:28] VITALS: BP 120/79; PULSE 107; RESP 15; O2SAT 100
[2023-07-03 22:48] LABS: Basophils Absolute Auto 0.1 K/mm3 (0.0-0.1); Basophils Percent Auto 0.9 % (0.2-1.2); Eosinophils Absolute Auto 0.1 K/mm3 (0-0.3); Eosinophils Percent Auto 1.2 % (0-4.4); Hematocrit 34.3 % (37.0-47.0); Hemoglobin 11.3 g/dL (12.0-15.0); Immature Granulocyte Absolute 0.02 K/mm3 (0.00-0.031); Immature Granulocyte Percent A 0.2 % (0-0.5); Lymphocytes Absolute Auto 2.85 K/mm3 (0.9-3.2); Lymphocytes Percent Auto 31.3 % (18.3-44.2); Mean Corpuscular HGB Conc 32.9 g/dl (32-36); Mean Corpuscular Hemoglobin 29.4 pg (26-34); Mean Corpuscular Volume 89.3 fl (80-100); Monocytes Absolute Auto 0.7 K/mm3 (0.1-0.6); Monocytes Percent Auto 7.3 % (2.6-8.5); Neutrophils Absolute Auto 5.4 K/mm3 (1.3-6.7); Neutrophils Percent Auto 59.1 % (45.5-73.1); Platelet Count Result 307 k/mm3 (150-375); Red Blood Count 3.84 M/mm3 (4.2-5.4); Red Cell Distribution Width 12.7 % (11.5-14.5); White Blood Count 9.1 K/mm3 (4.5-10.0)
--- NOTE | 2023-07-04 00:24 | ED.PREGNANCY ---
HPI - General Chief complaint: Vaginal Bleeding Stated complaint: miscarrage? Time Seen by Provider: 07/03/23 23:22 Source: patient and family (partner (boyfriend Leonel)) Mode of arrival: ambulatory Limitations: no limitations History of Present Illness HPI Narrative: 28 yo female with LMP in May (1st or 2nd week) who presents with spotting for the past few days, only when wipe. She has been getting serial BHCG through Ob[facility] Dr Lilliana Parra given some initial concern for inappropriate rise in BHCG. Vaginal bleeding became slightly heavier yesterday and by Tuesday early afternoon she had to use a panty liner. Passing several clots and having some abdominal cramping. Has not had imaging to confirm IUP. By patient report, serial BHCGs were 54, then 82 then 140 and most recently 1100. Related Data Allergies Allergy/AdvReac Type Severity Reaction Status Date / Time sulfamethoxazole Allergy Unknown HIVES Verified 07/03/23 22:28 [facility] Past Medical History Medical History (Updated 07/05/23 @ 00:00 by Arlene Tam) Anxiety and depression Endometriosis Gestational hypertension Migraines Obesity and not yet delivered Family History Family History Grandparent Diabetes mellitus Social History Social History Smoking status: Never smoker Second hand tobacco smoke exposure: No Substance use: never Spiritual care concerns: No Exam Narrative: GENERAL: Well-appearing, well-nourished, and in no acute distress. HEAD: Normocephalic, atraumatic. EYES: Non injected, non icteric ENT: Nares clear, no rhinorrhea or epistaxis. NECK: Supple. CHEST: Speaking in full sentences. No respiratory distress. HEART: Tachycardic rate and rhythm ABDOMEN: Soft, nondistended. Non tender to palpation. : Normal external female genitalia. Speculum exam with scant blood as well as white/ponce discharge . Unable to visualize cervical os. EXTREMITIES: Normal range of motion. No edema. SKIN: Warm, dry, no rash. NEURO: No focal deficits. Alert and oriented x3. PSYCH: Normal mood and affect. Course Vital Signs Vital signs: Vital Signs Temperature 98.0 F 07/03/23 21:13 Pulse Rate 108 H 07/03/23 21:13 Respiratory Rate 19 07/03/23 21:13 Blood Pressure 146/91 H 07/03/23 21:13 Pulse Oximetry 100 07/03/23 21:13 Oxygen Delivery Room Air 07/03/23 21:13 Temperature 98.0 F 07/03/23 21:13 Pulse Rate 107 H 07/03/23 22:28 Respiratory Rate 15 07/03/23 22:28 Blood Pressure 120/79 07/03/23 22:28 Pulse Oximetry 100 07/03/23 22:28 Oxygen Delivery Room Air 07/03/23 21:13 MDM - OB/Uterine Contractions MDM Narrative Medical decision making narrative: This is a 28 yo who comes to the ED with vaginal bleeding. In the ED she is afebrile and hemodynamically stable but mildly tachycardic. BHCG 1632.6, an increase from patient's past value she reports at 1100, though unclear what date that was and not a doubling as would be expected. Patient's Hgb 11.3. Per review of EMR it was 11.0 in January 2022 and later 8.9 that [address] Either way, appears stable. US with IUP however without pole. Miscarriage versus normal early . Patient informed of uncertainty at this point. Discharged home in stable condition. Will follow up with ObGyn and is given strict ED return precautions. Differential Diagnosis Differential diagnosis: Likely other (vaginal bleeding during , spectrum of miscarriage, ectopic ) Lab Data 07/03/23 22:42 Labs: Lab Results 07/03/23 Range/Units 22:42 WBC 9.1 (4.5-10.0) K/mm3 RBC 3.84 L (4.2-5.4) M/mm3 Hgb 11.3 L (12.0-15.0) g/dL Hct 34.3 L (37.0-47.0) % MCV 89.3 (80-100) fl MCH 29.4 (26-34) pg MCHC 32.9 (32-36) g/dl RDW 12.7 (11.5-14.5) % Plt Count 307 (150-375) k/mm3 MPV 10.0
== END 2023-07-04 04:42 | disposition home or self-care (01) ==
PROVIDERS: Emergency Provider Student in an Organized Health Care Education/Training Program; PCP Physician Assistant
DX: O20.0 Threatened abortion (principal); Z3A.00 Weeks of gestation of pregnancy not specified
CPT/HCPCS: 36415; 76817; 81025; 84702; 85025; 99284

== ENCOUNTER 2024-04-13 08:26 | Outpatient (CLI) | payer BC, SELFPAY ==
--- NOTE | ~2024-04-13 | US_ITS ---
US breast LT limited 04/13/2024 09:02 Indication: Left breast palpable abnormality Procedure: High-resolution Limited ultrasound of the left breast Comparison: No prior studies for comparison. Findings: At 2:00, 8 cm from the nipple there is an oval hypoechoic mass with circumscribed margins, parallel orientation, posterior acoustic enhancement and no internal vascularity measuring 4 mm. No o ther masses are seen. Impression: 1: Probable benign 4 mm left breast mass at 2:00, 8 cm from the nipple. BI-RADS CATEGORY 3-PROBABLY BENIGN FINDING RECOMMENDATION: 6 month follow-up Limited left breast ultrasound recommended Reviewed, dictated and finalized at [facility]. Impression: 1: Probable benign 4 mm left breast mass at 2:00, 8 cm from the nipple. BI-RADS CATEGORY 3-PROBABLY BENIGN FINDING RECOMMENDATION: 6 month follow-up Limited left breast ultrasound recommended
== END 2024-04-13 08:27 | disposition home or self-care (01) ==
LOC: ANHIMG 08:28
PROVIDERS: PCP Physician Assistant; Visit Provider Obstetrics & Gynecology
DX: N63.21 Unspecified lump in the left breast, upper outer quadrant (principal); R92.8 Other abnormal and inconclusive findings on diagnostic imaging of breast
CPT/HCPCS: 76642

== ENCOUNTER 2025-01-10 22:05 | Outpatient (CLI) | payer OTHER, SELFPAY ==
[2025-01-10] VITALS (7 sets, daily range): BP systolic 100–110; BP diastolic 63–76; PULSE 81–97; BMI 29.6
--- OUTSIDE RECORDS SUMMARY | 2025-01-10 22:11 | XMS_ITS | Encounter Summary ---
Author Organization [facility] Address [address] [place] [address] Phone Care Team Providers Care Crisis Intervention Specialist Name Role Phone MaribellAstrid andrews Primary Care Provider + Encounter Details Date Type Department Care Team (Late st Contact Info) Description 11/23/2024 Behavioral Health Patient Survey [facility] [address] [place] [address] Pamela Ross, [facility] [address] [place] [address] Social History Tobacco Use Types Packs/Day Years Used Date Smoking Tobacco: Never Smokeless Tobacco: Never Alcohol Use Standard Drinks/Week Comments Not Currently 0 (1 standard drink = 0.6 oz pur e alcohol) socially [facility] Utilities Answer Date Recorded In the past 12 months has [employer] electric, gas, oil, or water company threatened to shut off services in your home? No 08/22/2024 Social Connection and Isolation Panel Answer Date Recorded In a typical week, how many times do you talk on the phone with family, friends, or neighbors? More than three times a week 08/22/2024 How often do you get togethe r with friends or relatives? More than three times a week 08/22/2024 How often do you attend [facility] or anabaptism services? Never 08/22/2024 Do you belong to any clubs o r organizations such as yazidism groups, unions, fraternal or athletic groups, or school groups? No 08/22/2024 How often do you attend meet ings of the clubs or organizations you belong to? Never 08/22/2024 Are you , , di vorced, , never , or living with a partner? 08/22/2024 AUDIT-C Answer Date Recorded Q1: How often do you have a drink containing alc ohol? Monthly or less 08/22/2024 Q2: How many drinks containi ng alcohol do you have on a typical day when you are drinking? 1 or 2 08/22/2024 Q3: How often do you have si x or more drinks on one occasion? Never 08/22/2024 Overall Financial Resource Strain (CARDIA) Answe r Date Recorded How hard is it for you to pa y for the very basics like food, housing, medical care, and heating? Not hard at all 08/22/2024 PHQ-2 Answer Date Recorded Total Score - Questions 1-9 0 08/11 [facility] - Occupational Stress Questionnaire Answer Date Recorded Do you feel stress - tense, restless, nervous, or anxious, or unable to sleep at night because your mind is troubled all the time - these days? To some extent 08/22/2024 Exercise Vital Sign Answer Date Recorde d On average, how many days pe r week do you engage in moderate to strenuous exercise (like a brisk walk)? 3 days 08/22/2024 On average, how many minutes do you engage in exercise at this level? 30 min 08/22/2024 Hunger Vital Sign Answer Date Recorded Within the past 12 months, y ou worried that your food would run out before you got the money to buy more. Never true 08/22/19 25 Within the past 12 months, t he food you bought just didn't last and you didn't have money to get more. Never true 08/22/2024 PRAPARE - Transportation Answer Date Re corded In the past 12 months, has l ack of transportation kept you from medical appointments or from getting medications? No 08/11 In the past 12 months, has l ack of transportation kept you from meetings, work, or from getting things needed for daily living? No 08/22/2024 Housing Stability Vital Sign Answer Madhu e Recorded In the last 12 months, was t here a time when you were not able to pay the mortgage or rent on time? No 08/22/2024 Number of Times Moved in the Last Year Not on fi le 08/22/2024 At any time in the past 12 m onths, were you homeless or living in a long-term (including now)? No 08/22/2024 Education Answer Date Recorded What is the highest level of school you have completed or the highest degree you have received? Associate degree: occupational, technical, or vocational program 08/17/2022 Sexually Active Control Partners Comments Yes Oral Contraceptive Male Comments No Sex and Gender Information Value Date Recorded Sex Assigned at Not on file Legal Sex Female 12:21 PM CDT Gender Identity Not on file Sexual Orientation Not on file documented as of this encounter Plan of Treatment Not on file documented as of this encounter Goals Goal Patient Goal Type Associated Problems Recent Progress Patient-Stated? Author Behavioral Health Behavioral Health On track(2024 10:13 AM CDT) Yes Pamela Ross LCSW Note: regulate emotions so that I am not so irritable or angry all the time Goal Reviewed with: patient today Readiness to change: Ready to change Department associated with goal: [facility] Steps to achieve goal: to attend, at least twice monthly, counseling sessions. to identify, verbalize and process at least three contributing factors/triggers to emotional dysregulation. to identify and verbalize at least three actions/skills to prevent and/or cope with emotional dysregulation. to put into action, at least one time weekly, for one month, an action/skill to prevent and or cope with emotional dysregulation. decrease anxious feelings Depression On track(2024 10:13 AM CDT) No Pamela Ross LCSW Note: to have reduction of anxiety and depression symptoms. Goal Reviewed with: patient today Readiness to change: Ready to change Department associated with goal: [facility] Steps to achieve goal: to attend, at least twice monthly, counseling sessions. to identify, verbalize and process at least three contributing factors/triggers to anxiety and depression. to identify and verbalize at least three actions/skills to prevent and/or cope with anxiety and depression. to put into action, at least one time weekly, for one month, an action/skill to prevent and or cope with anxiety and depression. documented as of this encounter Visit Diagnoses Not on filedocumented in this encounter Additional Health Concerns Assessment Noted Time PHQ-9 Depression Total Score: 0 08/23/19 25 8:45 AM CHECK WEIGHER documented as of this encounter Care Teams Crisis Intervention Specialist Relationship Specialty Start Date End Date Astrid Desir [facility] [address] [place] [address] PCP - General Physician Android Platform Developer 08/18/22 documented as of this encounter
--- OUTSIDE RECORDS SUMMARY | 2025-01-10 22:11 | XMS_ITS | Clinical Summary ---
Author Organization [id number] Address [address] [place] [id number] Care Team Providers Care Poultry Husbandry Teacher Name Role Phone Dianne Pandya NP Primary Care Provider [phone] Allergies Active Allergy Reactions Criticality Noted Date Comments Sulfamethoxazole-Trimeth oprim Rash Medium 06/17/2017 Propoxyphene-Acetaminoph en Unknown 02/13/2010 Acts somewhat out of it w/ Darvocet in 7- w/ appendectomy Medications HYDROcodone-acet aminophen (NORCO) 5-325 mg per tabletIndication s:Pain 0 7 Active methylPREDNISolo ne (MEDROL DOSEPACK) 4 mg tabletIndication s:Rash, drug Take as directed on package. 21 tablet 7 Active Additional Information Patient not taking.Reported on 10/01/2024 albuterol HFA (PROVENTIL HFA) 90 mcg/actuation inhalerIndicatio ns:Bronchitis Inhale 2 puffs every 4 (four) hours as needed for wheezing or shortness of breath 6.7 g 9 Active Additional Information Patient not taking.Reported on 10/01/2024 azithromycin (ZITHROMAX) 250 mg tabletIndication s:Lower respiratory infection (e.g., bronchitis, pneumonia, pneumonitis, pulmonitis) Take 2 tablets the first day, then 1 tablet daily for 4 days. 6 tablet Active Active Problems Estimated Date of Delivery Comme nts Yes 05/21/2025 No known active problems Surgical History Surgery Date Site/Laterality Comments APPENDECTOMY Appendectomy OTHER SURGICAL HISTORY Ovarian cyst: surgical removal x2 Medical History Medical History Date Comments Cyst of ovary Ovarian cyst; Co mments: SAB 10/12/2015 - Social History Tobacco Use Types Packs/Day Years Used Date Smoking Tobacco: Never Smokeless Tobacco: Never Tobacco Cessation:Counseling Given: Not Answered Alcohol Use Standard Drinks/Week Comments No 0 (1 standard drink = 0.6 oz pur e alcohol) Estimated Date of Delivery Comme nts Yes 05/21/2025 Sex and Gender Information Value Date Recorded Sex Assigned at Not on file Legal Sex Female 6:49 PM SECOND OPERATOR Gender Identity Not on file Sexual Orientation Not on file Obstetrics History Para Term AB IAB SAB Ectopic Multiple Livin g Live Births 1 Date Outcome GA Total Labor Labor/2nd/3rd Weight Sex Type Anes PTL Margaret A1 A5 Name Clin Current Last Filed Vital Signs Vital Sign Reading Time Taken Comments Blood Pressure 122/80 10/01/2024 4:39 PM CDT Pulse 100 10/01/2024 4:39 PM CDT Temperature 36.9 C (98.5 F) 10/01/2024 4:39 PM CDT Respiratory Rate 18 10/01/2024 4:39 PM CDT Oxygen Saturation 99% 10/01/2024 4:39 PM CDT Inhaled Oxygen Concentration - - Weight 70.3 kg (155 lb) 10/01/2024 4:39 PM CDT Height 172.7 cm (5' 8) 10/01/2024 4:39 PM CDT Body Mass Index 23.57 10/01/2024 4:39 PM CDT Plan of Treatment Health Maintenance Due Date Last Done Comments Cervical Cancer Screening 1995 Depression Screening 1995 Hepatitis C Screening 1995 Regular Well Visit/Exam 18-64 2013 Covid-19 Vaccine ( season) 2024 05/08/2021, 08/07/2020, 07/10/2020 Influenza Vaccine (Season Ended) 2025 05/10/2023, 05/20/2018, 04/10/2018, Additional history exists DTaP/Tdap/Td Vaccine (7 - Td or Tdap) 12/10/2031 12/09/2021, 04/15/2000, 04/20/1996, Additional history exists Hepatitis B Screening Completed 1995 , 1995, 1995 HPV Vaccines Completed 08/26/2008, 03/2008, 02/20/2008 Varicella Vaccines Completed 02/13/2010, 05/15/1998 Pneumococcal vaccine <65 Aged Out No longer eligible based on patient's age to complete this topic Insurance [facility] OPEN ACCESS Care Teams Poultry Husbandry Teacher Relationship Specialty Start Date End Date Dianne Pandya NP PCP - General Nurse Practitioner 05/11/17
--- OUTSIDE RECORDS SUMMARY | 2025-01-10 22:11 | XMS_ITS | Encounter Summary ---
Author Organization [facility] Address [address] [place] [address] Phone Care Team Providers Care Cycle Analyst Name Role Phone Astrid Desir Primary Care Provider + Encounter Details Date Type Department Care Team (Late st Contact Info) Description 01/05/2024 Behavioral Health Patient Survey [facility] [address] [place] [address] Pamela Ross, [facility] [address] [place] [address] Social History Tobacco Use Types Packs/Day Years Used Date Smoking Tobacco: Never Smokeless Tobacco: Never Alcohol Use Standard Drinks/Week Comments Not Currently 0 (1 standard drink = 0.6 oz pur e alcohol) socially AHC Utilities Answer Date Recorded In the past 12 months has [employer] electric, gas, oil, or water company threatened to shut off services in your home? No 12/25/2023 Social Connection and Isolation Panel Answer Date Recorded In a typical week, how many times do you talk on the phone with family, friends, or neighbors? More than three times a week 12/25/2023 How often do you get togethe r with friends or relatives? More than three times a week 12/25/2023 How often do you attend [facility] or catholic services? Never 12/25/2023 Do you belong to any clubs o r organizations such as amish groups, unions, fraternal or athletic groups, or school groups? No 12/25/2023 How often do you attend meet ings of the clubs or organizations you belong to? Never 12/25/2023 Are you , , di vorced, , never , or living with a partner? Living with partner 12/25/2023 AUDIT-C Answer Date Recorded Q1: How often do you have a drink containing alc ohol? Monthly or less 12/25/2023 Q2: How many drinks containi ng alcohol do you have on a typical day when you are drinking? 1 or 2 12/25/2023 Q3: How often do you have si x or more drinks on one occasion? Never 12/25/2023 Overall Financial Resource Strain (CARDIA) Answe r Date Recorded How hard is it for you to pa y for the very basics like food, housing, medical care, and heating? Patient declined 12/25/2023 PHQ-2 Answer Date Recorded Total Score - Questions 1-9 13 12/09 [facility] - Occupational Stress Questionnaire Answer Date Recorded Do you feel stress - tense, restless, nervous, or anxious, or unable to sleep at night because your mind is troubled all the time - these days? Very much 12/25/2023 Exercise Vital Sign Answer Date Recorde d On average, how many days pe r week do you engage in moderate to strenuous exercise (like a brisk walk)? 3 days 12/25/2023 On average, how many minutes do you engage in exercise at this level? 40 min 12/25/2023 Hunger Vital Sign Answer Date Recorded Within the past 12 months, y ou worried that your food would run out before you got the money to buy more. Never true 12/25/19 24 Within the past 12 months, t he food you bought just didn't last and you didn't have money to get more. Never true 12/25/2023 PRAPARE - Transportation Answer Date Re corded In the past 12 months, has l ack of transportation kept you from medical appointments or from getting medications? No 12/09 In the past 12 months, has l ack of transportation kept you from meetings, work, or from getting things needed for daily living? No 12/25/2023 Housing Stability Vital Sign Answer Madhu e Recorded In the last 12 months, was t here a time when you were not able to pay the mortgage or rent on time? Patient declined 12/25/19 24 Number of Times Moved in the Last Year Not on fi le 12/25/2023 At any time in the past 12 m onths, were you homeless or living in a assisted (including now)? No 12/25/2023 Education Answer Date Recorded What is the [...] Ready to change Department associated with goal: [facility] Steps [...] Ready to change Department associated with goal: [facility] Steps [...] Assessment Noted Time PHQ-9 Depression Total Score: 13 024 11:17 AM CDT documented as of this encounter Care Teams Cycle Analyst Relationship Specialty Start Date End Date Astrid Desir [address] [place] [address] PCP - General Physician Product Inspection Supervisor 08/18/22 documented as of this encounter
--- OUTSIDE RECORDS SUMMARY | 2025-01-10 22:11 | XMS_ITS | Encounter Summary ---
Author Organization [facility] Address [address] [place] [address] Phone Care Team Providers Care Certified Alcohol Counselor Name Role Phone Astrid Desir Primary Care Provider + Encounter Details Date Type Department Care Team (Late st Contact Info) Description 05/14/2024 Behavioral Health [facility] Survey [facility] [address] [place] [address] Pamela Ross, [facility] [address] [place] [address] Social History Tobacco Use Types Packs/Day Years Used Date Smoking Tobacco: Never Smokeless Tobacco: Never Alcohol Use Standard Drinks/Week Comments Not Currently 0 (1 standard drink = 0.6 oz pur e alcohol) socially AHC Utilities Answer Date Recorded In the past 12 months has [employer] electric, gas, oil, or water company threatened to shut off services in your home? No 02/26/2024 Social Connection and Isolation Panel Answer Date Recorded In a typical week, how many times do you talk on the phone with family, friends, or neighbors? More than three times a week 02/26/2024 How often do you get togethe r with friends or relatives? More than three times a week 02/26/2024 How often do you attend [facility] or scientology services? Never 02/26/2024 Do you belong to any clubs o r organizations such as druze groups, unions, fraternal or athletic groups, or school groups? No 02/26/2024 How often do you attend meet ings of the clubs or organizations you belong to? Never 02/26/2024 Are you , , di vorced, , never , or living with a partner? Living with partner 02/26/2024 AUDIT-C Answer Date Recorded Q1: How often do you have a drink containing alc ohol? Monthly or less 02/26/2024 Q2: How many drinks containi ng alcohol do you have on a typical day when you are drinking? 1 or 2 02/26/2024 Q3: How often do you have si x or more drinks on one occasion? Never 02/26/2024 Overall Financial Resource Strain (CARDIA) Answe r Date Recorded How hard is it for you to pa y for the very basics like food, housing, medical care, and heating? Not very hard 02/26/2024 PHQ-2 Answer Date Recorded Total Score - Questions 1-9 13 12/09 [facility] - Occupational Stress Questionnaire Answer Date Recorded Do you feel stress - tense, restless, nervous, or anxious, or unable to sleep at night because your mind is troubled all the time - these days? To some extent 02/26/2024 Exercise Vital Sign Answer Date Recorde d On average, how many days pe r week do you engage in moderate to strenuous exercise (like a brisk walk)? 3 days 02/26/2024 On average, how many minutes do you engage in exercise at this level? 30 min 02/26/2024 Hunger Vital Sign Answer Date Recorded Within the past 12 months, y ou worried that your food would run out before you got the money to buy more. Never true 02/26/20 24 Within the past 12 months, t he food you bought just didn't last and you didn't have money to get more. Never true 02/26/2024 PRAPARE - Transportation Answer Date Re corded In the past 12 months, has l ack of transportation kept you from medical appointments or from getting medications? No 02/08 In the past 12 months, has l ack of transportation kept you from meetings, work, or from getting things needed for daily living? No 02/26/2024 Housing Stability Vital Sign Answer Madhu e Recorded In the last 12 months, was t here a time when you were not able to pay the mortgage or rent on time? No 02/26/2024 Number of Times Moved in the Last Year Not on fi le 02/26/2024 At any time in the past 12 m onths, were you homeless or living in a assisted (including now)? No 02/26/2024 Education Answer Date Recorded What is the [...] Ready to change Department associated with goal: [facility] Steps to achieve goal: [...] Ready to change Department associated with goal: [facility] Steps to achieve goal: [...] documented as of this encounter Care Teams Certified Alcohol Counselor Relationship Specialty Start Date End Date Astrid Desir [address] [place] [address] PCP - General Physician Employment Office Clerk 08/18/22 documented as of this encounter
--- OUTSIDE RECORDS SUMMARY | 2025-01-10 22:11 | XMS_ITS | Clinical Summary ---
Author Organization [facility] Address [address] [place] [address] Phone Care Team Providers Care Office Clinician Name Role Phone Astrid Desir Primary Care Provider + Allergies Active Allergy Reactions Criticality Noted Date Comments Sulfamethoxazole-Trimethoprim Hives,Rash Medium 2016 Medications ondansetron (Zofran) 4 MG TabletIndicatio ns:Nausea and vomiting, unspecified vomiting type Take 1 Tablet by mouth every 8 hours as needed for Nausea - 1st line. 20 Tablet 03/01/20 23 Active triamcinolone (KENALOG) 0.1 % Ointment Apply 2 times daily. Application Site: apply 2-3 times daily to area on hands 80 g 05/10/20 23 Active hydrOXYzine (ATARAX) 25 MG Tablet Take 1 Tablet by mouth every 6 hours as needed for Anxiety or Sleep. 90 Tablet 05/24/20 24 Active clindamycin (CLEOCIN T) 1 % Lotion 05/25/20 24 Active doxycycline hyclate (VIBRAMYCIN) 100 MG Capsule 05/25/20 24 Active tretinoin (RETIN-A) 0.025 % Cream 05/26/20 24 Active buPROPion (WELLBUTRIN) 300 MG TABLET SR 24 HR XL tabletIndicatio ns:Depression, unspecified depression type Take 1 Tablet by mouth every morning. 90 Tablet 1 05/29/20 24 Active buPROPion (WELLBUTRIN) 150 MG XL tablet Take 1 Tablet by mouth every morning. 90 Tablet 05/29/20 24 Active sertraline (ZOLOFT) 25 MG TabletIndicatio ns:Generalized Anxiety Disorder Take 25 mg by mouth daily. Indications: Generalized Anxiety Disorder Active methylPREDNISol one (MEDROL DOSPACK) 4 MG Tablet Therapy Pack Use as per instructions on package. 21 Tablet 08/23/19 25 Active methocarbamol (ROBAXIN) 750 MG Tablet Take 1 Tablet by mouth 4 times daily as needed (pain). 30 Tablet 08/23/19 25 Active COMPOUNDED MEDICATION Semaglutide/Cyanoc obalamin 5/0.5 mg/mL. Inject 0.25mL subcutaneously once a week. Please dispense vial 2.5 ml vial 2 Each 5 09/07/19 Active Active Problems Problem Noted Date Diagnosed Date Anxiety and depression 10/23/2020 Encounters Date Type Department Care Team Description 11/23/2024 9:15 AM CDT Outpatient Clinic Visit [facility] 1 [place] [address] Pamela Ross LCSW Anxiety (Primary Dx) Discharge Disposition: Discharged to home or Selfcare 11/23/2024 Behavioral Health Patient Survey [facility] [address] [place] [address] Pamela Ross LCSW 11/23/2024 Travel from Last 3 Months Immunizations Immunization Administration Dates Next Due Covid-19, Mrna, Lnp-s, PF, 1 00 mcg/0.5 mL Dose (Moderna) 08/10/2020,08/07/2020 DTAP VACCINE, UNSPECIFIED FORMULATION ,04/20/1996,1995,09/11,1995 Hepatitis B Vaccine, Pediatric/adolescent 1995,1995,1995 Hib Vaccine,unspecified Formulation 04/10,1995,1995,07/08 Human Papillomavirus Vaccine (HPV), quadrivalent 08/26/2008,04/18/2008,02/20/2008 Influenza Vaccine 04/10/2018 Influenza Vaccine, Quadrivalent, PF 05/10/2023,0 04/08/2017 Influenza Vaccine,unspecifie d Formulation 04/10/2018 Influenza, Injectable, Quadrivalent 05/20/2018 MMR Vaccine 04/15/2000,04/20/1996 Meningococcal Vaccine, Unspe cified Formulation 09/18/2013,02/20/2008 OPV 1995,1995,1995 Polio Vaccine,unspecified Formulation 04/15/2000 ,04/20/1996 TDAP Vaccine 12/09/2021 Varicella Vaccine Live 02/13/2010,05/15/1998 Family History Medical History Relation Name Comments No Known Problems Brother Migraines Father Michael Diabetes Maternal Aunt Pamela Cancer Maternal Grandfather Long Diabetes Maternal Grandfather Long Hypertension Maternal Grandfather Long Liver Disease Maternal Grandfather Long heavy alcohol use Hypertension Maternal Grandmother Lara Diabetes Mother Lynda Chronic Obstructive Pulmonary Disease Paternal Grandfa ther Relation Name Status Comments Brother Alive Father Michael Alive Maternal Aunt Pamela Maternal Grandfather Long Maternal Grandmother Lara Alive Mother Lynda Alive Paternal Grandfather Alive Paternal Grandmother Alive Social History Tobacco Use Types Packs/Day Years Used Date Smoking Tobacco: Never Smokeless Tobacco: Never Tobacco Cessation:Counseling Given: Not Answered Alcohol Use Standard Drinks/Week Comments Not Currently 0 (1 standard drink = 0.6 oz pur e alcohol) socially [employer] Utilities Answer Date Recorded In the past 12 months has [employer], gas, oil, or water [employer] threatened to shut off services in your [...] week 08/22/2024 How often do you attend chur ch or yazdanism services? Never 08/22/2024 Do you belong to any clubs o r organizations such as orthodoxy groups, unions, fraternal or athletic groups, or [...] Total Score - Questions 1-9 0 08/11 [facility] - Occupational [...] any time in the past 12 m [facility], were you homeless or living in a correction (including now)? No 08/22/2024 Education Answer Date [...] on file Sexual Orientation Not on file Last Filed Vital Signs Vital Sign Reading Time Taken Comments Blood Pressure 106/60 08/23/2024 8:42 AM LINUX KERNEL ENGINEER Pulse 89 08/23/2024 8:42 AM LINUX KERNEL ENGINEER Temperature 36.2 C (97.2 F) 08/23/2024 8:42 AM LINUX KERNEL ENGINEER Respiratory Rate 16 08/26/2023 8:34 AM LINUX KERNEL ENGINEER Oxygen Saturation 99% 08/23/2024 8:42 AM LINUX KERNEL ENGINEER Inhaled Oxygen Concentration - - Weight 69.4 kg (153 lb) 08/23/2024 8:42 AM LINUX KERNEL ENGINEER Height 172.7 cm (5' 8) 08/23/2024 8:42 AM LINUX KERNEL ENGINEER Body Mass Index 23.26 08/23/2024 8:42 AM LINUX KERNEL ENGINEER Plan of Treatment Health Maintenance Due Date Last Done Comments Pap Smear 02/27/2021 02/27/2018 SARS-COV-2 Immunization ( season) 2024 05/08/2021, 08/10/2020, 08/07/2020, Additional history exists Influenza Immunization (#1) 03/11/202504/12, 05/20/2018, 04/10/2018, Additional history exists DTaP/Tdap/Td Immunization (7 - Td or Tdap) 12/10/2031 12/09/2021, 04/15/2000, 04/20/1996, Additional history exists Respiratory Syncytial Virus (RSV) Immunization (Adult) (1 - 1-dose 75+ series) 2070 Hepatitis B Immunization Completed 996, 1995, 1995 Human Papillomavirus (HPV) Immunization Completed 08/26/2008, 04/18/2008, 02/20/2008 Meningococcal Immunization (ACWY) Completed 09/18/2013, 02/20/2008 Hepatitis C Virus (HCV) Screening Completed 09/23/2020 Pneumococcal Immunization Combined Aged Out No longer eligible based on patient's age to complete this topic Rotavirus Immunization Aged Out No lo nger eligible based on patient's age to complete this topic Goals Goal Patient Goal Type Associated Problems Recent Progress Patient-Stated? Author Behavioral Health Behavioral Health On track(2024 10:13 AM CDT) Yes Pamela Ross LCSW Note: regulate emotions so that I am not so irritable or angry all the time Goal Reviewed with: patient today Readiness to change: Ready to change Department associated with goal: [facility] Steps to achieve [...] Ready to change Department associated with goal: [facility] Steps to achieve [...] and or cope with anxiety and depression. Procedures Procedure Name Priority Date/Time Associated Diagnosis Comments HEPATITIS C ANTIBODY Routine 09/23/2020 1:48 PM CDT Preventative health care (Adult) PATHOLOGY CYTOLOGY BAG BLEACHER Routine 02/27/2018 from Last 3 Months or Most Recently Relevant to Health Maintenance Results * HEPATITIS C ANTIBODY (09/23/2020 1:48 PM CDT) hepatitis C antibody 0.08 <1 S/CO [facility] ARCH [id number] B 09/23/2020 10:17 PM CDT [facility] Comment: Signal/Cutoff ratio < 0.79 is Nondetected Signal/Cutoff ratio 0.80-0.99 is Grayzone Signal/Cutoff ratio > 0.99 is Detected Supplemental assays are recommended if signal/cutoff ratio is >/=1.00. Signal/cutoff ratio result >/= 5.00 is 97% predictive of positivity for recombinant immunoblot assay (RIBA) and will be reported to the [place] Department of Public [facility] as required. Blood Venipuncture / Unknown 09/23/2020 1:48 PM CDT 09/23/2020 1:48 PM CDT us Akhil Jessica PAC CHEMISTRY ORDERABLES Fin al Result [facility] [address] [place] [address], * PATHOLOGY CYTOLOGY BAG BLEACHER (02/27/2018) Other us Jose Antonio Parra MD PATHOLOGY/CYTOLOGY ORDERAB LES Final Result from Last 3 Months or Most Recently Relevant to Health Maintenance Insurance CIG Care Teams Office Clinician Relationship Specialty Start Date End Date Astrid Desir, [address] [place] [address] PCP - General Physician Mesh Man 08/18/22
--- OUTSIDE RECORDS SUMMARY | 2025-01-10 22:11 | XMS_ITS | Referral Summary ---
Author Organization [id number] Address [address] [place] [address] Care Team Providers Care Truck Sales Manager Name Role Phone Dianne Pandya NP Primary Care Provider [phone] Allergies Active Allergy Reactions Criticality Noted Date [...] nts Yes 05/21/2025 No known active problems Social History Tobacco Use Types Packs/Day Years Used Date Smoking Tobacco: Never Smokeless Tobacco: Never Tobacco Cessation:Counseling Given: Not Answered Alcohol Use Standard Drinks/Week Comments No 0 (1 standard drink = 0.6 oz pur e alcohol) Estimated Date of Delivery Comme nts Yes 05/21/2025 Sex and Gender Information Value Date Recorded Sex Assigned at Not on file Legal Sex Female 6:49 PM ADVERTISEMENT COMPOSITOR Gender Identity Not on file Sexual Orientation [...] 10/01/2024 4:39 PM CDT Plan of Treatment Not on file Insurance [facility] Care Teams Truck Sales Manager Relationship Specialty Start Date End Date Dianne Pandya NP PCP - General Nurse Practitioner 05/11/17
--- OUTSIDE RECORDS SUMMARY | 2025-01-10 22:11 | XMS_ITS | Clinical Summary ---
Author Organization [facility] Address [address] [place] [address] Care Team Providers Care Registrar Nurses' Registry Name Role Phone Unavailable Primary Care Provider Unavailabl e Source Comments [facility],non-owned Affiliates and Associated Physician Practices is amultiple site organization consisting of ambulatory clinics and hospital sitesin [place], [place], [place] and [place]. This disclosure is being madepursuant to the Care Everywhere program and may not contain all information available regarding this patient. Last updated 18.[facility] nWay Allergies Active Allergy Reactions Criticality Noted Date Comments Propoxyphene N-Apap Other 02/13/2010 Acts somewhat out of it w/ Darvocet in 7- w/ appendectomy Sulfamethoxazole W-Trimethoprim Urticaria,Rash Medium 06/17/2017 Medications * Be aware that medications may not be up to date on this document. Alwaysverify current medications with the patient. No known medications Active Problems Problem Noted Date Diagnosed Date Endometriosis 07/28/2018 Chronic pelvic pain in female 07/28/2018 Immunizations Immunization Administration Dates Next Due INFLUENZA VACCINE 04/10/2018 Family History Medical History Relation Name Comments Migraine Father Relation Name Status Comments Father Social History Tobacco Use Types Packs/Day Years Used Date Smoking Tobacco: Never Smokeless Tobacco: Never Alcohol Use Standard Drinks/Week Comments No 0 (1 standard drink = 0.6 oz pur e alcohol) Comments No Sex and Gender Information Value Date Recorded Sex Assigned at Not on file Legal Sex Female 8:26 AM ASSISTANT TODDLER TEACHER Gender Identity Not on file Sexual Orientation Not on file Last Filed Vital Signs Vital Sign Reading Time Taken Comments Blood Pressure 128/84 08/25/2018 3:15 PM ASSISTANT TODDLER TEACHER Pulse 97 08/09/2018 11:27 AM ASSISTANT TODDLER TEACHER Temperature 36.7 C (98 F) 08/09/2018 10:13 AM ASSISTANT TODDLER TEACHER Respiratory Rate 16 08/09/2018 11:27 AM ASSISTANT TODDLER TEACHER Oxygen Saturation 98% 08/09/2018 11:27 AM ASSISTANT TODDLER TEACHER Inhaled Oxygen Concentration - - Weight 95.3 kg (210 lb) 08/25/2018 3:15 PM ASSISTANT TODDLER TEACHER Height 170.2 cm (5' 7) 08/25/2018 3:15 PM ASSISTANT TODDLER TEACHER Body Mass Index 32.89 08/25/2018 3:15 PM ASSISTANT TODDLER TEACHER Plan of Treatment Health Maintenance Due Date Last Done Comments HIV SCREENING 2010 HEPATITIS C SCREENING 04/08/2013 DTAP/TDAP/TD VACCINES (1 - Tdap) 2014 HEPATITIS B VACCINE (1 of 3 - 19+ 3-dose series) 2014 COVID-19 VACCINE (1 - 2023-2 5 season) 2024 DEPRESSION SCREENING 07/11/2024 INFLUENZA VACCINE (Season Ended) 2025 05/20/2018, 04/10/2018 ZOSTER VACCINE (1 of 2) 2045 HIB VACCINE Aged Out No longer eligi ble based on patient's age to complete this topic HPV VACCINE Aged Out No longer eligi ble based on patient's age to complete this topic MENINGOCOCCAL (Group B) VACCINE SHARED DECISION-MAKING Aged Out No longer eligible based on patient's age to complete this topic MENINGOCOCCAL GROUPS A/C/Y/W VACCINE Aged Out No longer eligible b ased on patient's age to complete this topic PNEUMOCOCCAL VACCINE Aged Out No long er eligible based on patient's age to complete this topic Insurance [facility] [address] [address]
--- OUTSIDE RECORDS SUMMARY | 2025-01-10 22:11 | XMS_ITS | Encounter Summary ---
Author Organization [facility] Address [address] [place] [address] Phone Care Team Providers Care Yard Attendant Name Role Phone Astrid Desir Primary Care Provider + Encounter Details Date Type Department Care Team (Late st Contact Info) Description 03/07/2024 Behavioral Health Patient Survey [facility] 1 [place] [address] Pamela Ross, [facility] [address] [place] [address] Social History Tobacco Use Types Packs/Day Years Used Date Smoking Tobacco: Never Smokeless Tobacco: Never Alcohol Use Standard Drinks/Week Comments Not Currently 0 (1 standard drink = 0.6 oz pur e alcohol) socially [facility] Utilities Answer Date Recorded In the past 12 months has [employer] electric, gas, oil, or water company threatened [...] week 02/26/2024 How often do you attend [facility] or restoration services? Never 02/26/2024 Do you belong to any clubs o r organizations such as tenriism groups, unions, fraternal or athletic groups, or [...] Total Score - Questions 1-9 13 12/09 [facility] Occupat ional Health - Occupational [...] were you homeless or living in a group home (including now)? No 02/26/2024 Education Answer Date [...] Ready to change Department associated with goal: [facility] Steps to achieve [...] Ready to change Department associated with goal: [facility] Steps to achieve [...] documented as of this encounter Care Teams Yard Attendant Relationship Specialty Start Date End Date Astrid Desir PAC [address] [place] [address] PCP - General Physician Milling General Superintendent 08/18/22 documented as of this encounter
--- OUTSIDE RECORDS SUMMARY | 2025-01-10 22:11 | XMS_ITS | Encounter Summary ---
Author Organization [facility] Address [address] [place] [address] Phone Care Team Providers Care Bulk Loader Name Role Phone Maribelljuliana Atsrid OLIVIER Primary Care Provider + Encounter Details Date Type Department Care Team (Late st Contact Info) Description 07/23/2024 Behavioral Health Patient Survey [facility] Services 1 [place] [address] Pamela Ross, [facility] [address] [place] [address] Social History Tobacco Use Types Packs/Day Years Used Date Smoking Tobacco: Never Smokeless Tobacco: Never Alcohol Use Standard Drinks/Week Comments Not Currently 0 (1 standard drink = 0.6 oz pur e alcohol) socially AHC Utilities Answer Date Recorded In the past 12 months has [employer] electric, gas, oil, or water company threatened to shut off services in your home? No 05/27/2024 Social Connection and Isolation Panel Answer Date Recorded In a typical week, how many times do you talk on the phone with family, friends, or neighbors? Three times a week 05/27/20 How often do you get togethe r with friends or relatives? Twice a week 05/27/2024 How often do you attend [facility] or mormon services? Never 05/27/2024 Do you belong to any clubs o r organizations such as voodoo groups, unions, fraternal or athletic groups, or school groups? No 05/27/2024 How often do you attend meet ings of the clubs or organizations you belong to? Never 05/27/2024 Are you , , di vorced, , never , or living with a partner? Living with partner 05/27/2024 AUDIT-C Answer Date Recorded Q1: How often do you have a drink containing alc ohol? Monthly or less 05/27/2024 Q2: How many drinks containi ng alcohol do you have on a typical day when you are drinking? 1 or 2 05/27/2024 Q3: How often do you have si x or more drinks on one occasion? Less than monthly 05/27/2024 Overall Financial Resource Strain (CARDIA) Answe r Date Recorded How hard is it for you to pa y for the very basics like food, housing, medical care, and heating? Not hard at all 05/27/2024 PHQ-2 Answer Date Recorded Total Score - Questions 1-9 10 05/11 [facility] of Occupat ional Health - Occupational Stress Questionnaire Answer Date Recorded Do you feel stress - tense, restless, nervous, or anxious, or unable to sleep at night because your mind is troubled all the time - these days? Very much 05/27/2024 Exercise Vital Sign Answer Date Recorde d On average, how many days pe r week do you engage in moderate to strenuous exercise (like a brisk walk)? 3 days 05/27/2024 On average, how many minutes do you engage in exercise at this level? 30 min 05/27/2024 Hunger Vital Sign Answer Date Recorded Within the past 12 months, y ou worried that your food would run out before you got the money to buy more. Never true 05/27/20 24 Within the past 12 months, t he food you bought just didn't last and you didn't have money to get more. Never true 05/27/2024 PRAPARE - Transportation Answer Date Re corded In the past 12 months, has l ack of transportation kept you from medical appointments or from getting medications? No 05/11 In the past 12 months, has l ack of transportation kept you from meetings, work, or from getting things needed for daily living? No 05/27/2024 Housing Stability Vital Sign Answer Madhu e Recorded In the last 12 months, was t here a time when you were not able to pay the mortgage or rent on time? No 05/27/2024 Number of Times Moved in the Last Year Not on fi le 05/27/2024 At any time in the past 12 m ont, were you homeless or living in a detention (including now)? No 05/27/2024 Education Answer Date Recorded What is the [...] Ready to change Department associated with goal: [facility] Steps to [...] Ready to change Department associated with goal: [facility] Steps to [...] Assessment Noted Time PHQ-9 Depression Total Score: 10 024 2:37 PM SLITTER AND REWINDER documented as of this encounter Care Teams Bulk Loader Relationship Specialty Start Date End Date Astrid Desir [address] [place] [address] PCP - General Physician Foam Tank Laminator 08/18/22 documented as of this encounter
--- OUTSIDE RECORDS SUMMARY | 2025-01-10 22:11 | XMS_ITS | Encounter Summary ---
Author Organization [facility] Address [address] [place] [place] [address] Phone Care Team Providers Care Emergency Room Orderly Name Role Phone Astrid Desir Primary Care Provider + Encounter Details Date Type Department Care Team (Late st Contact Info) Description 06/19/2024 Behavioral Health Patient Survey [facility] Services 1 [place] [address] Pamela Ross, [facility] [address] [place] [address] Social History Tobacco Use Types Packs/Day Years Used Date Smoking Tobacco: Never Smokeless Tobacco: Never Alcohol Use Standard Drinks/Week Comments Not Currently 0 (1 standard drink = 0.6 oz pur e alcohol) socially AHC Utilities Answer Date Recorded In the past 12 months has [employer] electric, gas, oil, or water company threatened [...] week 05/27/2024 How often do you attend [facility] or yazdanism services? Never 05/27/2024 Do you belong to any clubs o r organizations such as restorationism groups, unions, fraternal or athletic groups, or [...] Total Score - Questions 1-9 10 05/11 [facility] of Occupat ional Health - Occupational Stress [...] were you homeless or living in a half-way (including now)? No 05/27/2024 Education Answer Date [...] Ready to change Department associated with goal: [facility] Steps to [...] Ready to change Department associated with goal: [facility] Steps to [...] Depression Total Score: 10 024 2:37 PM SURFACE GRINDER documented as of this encounter Care Teams Emergency Room Orderly Relationship Specialty Start Date End Date Astrid Desir [address] [place] [address] PCP - General Physician Retirement Specialist 08/18/22 documented as of this encounter
[2025-01-10 22:37] LABS: Hematocrit 36.0 % (37.0-47.0); Hemoglobin 12.2 g/dL (12.0-15.0); Immature Granulocyte Percent A 0.9 % (0-0.5); Lymphocytes Absolute Auto 2.06 K/mm3 (0.9-3.2); Mean Corpuscular HGB Conc 33.9 g/dl (32-36); Mean Corpuscular Hemoglobin 30.7 pg (26-34); Mean Corpuscular Volume 90.7 fl (80-100); Nucleated Red Blood Cells Absolute Auto 0.000 K/mm3 (0.0-0.012); Nucleated Red Blood Cells Perc 0.0 % (0.0-0.2); Platelet Count Result 269 k/mm3 (150-375); Red Blood Count 3.97 M/mm3 (4.2-5.4); White Blood Count 10.1 K/mm3 (4.5-10.0)
[2025-01-10 22:45] LABS: Add Urine Microscopic? YES; Appearance Urine Clear (Clear); Glucose Urine UA Negative (Negative); Leukocyte Esterase Ur Negative LEU/UL (Negative); Nitrate Urine Negative (Negative); Non Pathogenic Casts 0-2; Specific Grav Ur 1.028 (1.001-1.035)
[2025-01-10 22:51] LABS: Alanine Aminotransferase 21 U/L (6-35); Albumin Level 3.6 g/dL (3.5-5.1); Alkaline Phosphatase 63 U/L (38-126); Anion Gap 10 mmol/L (4-12); Aspartate Amino Transferase 31 U/L (14-36); Bilirubin,Total 0.2 mg/dL (0.2-1.3); Blood Urea Nitrogen 9 mg/dL (7-17); Calcium 9.1 mg/dL (8.4-10.2); Carbon Dioxide 23 mmol/L (22-30); Chloride 104 mmol/L (98-107); Estimated CRCL calculation 126 ml/min; Estimated Glomerular Filt Rate > 60; Glucose 92 mg/dL (65-110); Potassium 3.5 mmol/L (3.4-5.0); Sodium 137 mmol/L (137-145); Total Protein 7.2 g/dL (6.3-8.2); Uric Acid 4.4 mg/dL (2.5-7.5)
[2025-01-10 23:17] LABS: Total Protein Urine Random < 5 mg/dL; Ur Ttl Prot Creatinine Ratio < 0.02 mg/mg (0-0.20)
--- NOTE | 2025-01-10 23:20 | PC.NURSE ---
Dr. Delgado notified of patient arrival to the labor and delivery unit with complaints of shortness of breath, headaches, visual disturbances, and spots on and off for the last two days. Patient states that her headache is across the frontal lobe and rating the pain at a seven or eight when the headaches occur. notified of lab and urine results. New orders received to discharge patient home at this time and inform the patient that she can take 1000 mg of Tylenol if headaches occur.
--- NOTE | 2025-01-10 23:35 | PC.NURSE ---
Discharge discussed with patient at this time. RN states that she can take Tylenol when headaches occur per providers orders. If pain and headaches continues call the OB department or come in to be evaluated. Patient agrees to discharge at this time.
== END 2025-01-10 23:38 | disposition home or self-care (01) ==
LOC: ANHOBOP 22:09 → ANHOBPP 22:11
PROVIDERS: Obstetrics & Gynecology Gynecology; PCP Physician Assistant; Visit Provider Obstetrics & Gynecology
DX: O13.9 Gestational [pregnancy-induced] hypertension without significant proteinuria, unspecified trimester (principal); Z3A.00 Weeks of gestation of pregnancy not specified
CPT/HCPCS: 36415; 80053; 81001; 82570; 84156; 84550; 85025; 99199

== ENCOUNTER 2025-01-28 10:27 | Outpatient (CLI) | payer OTHER, SELFPAY ==
--- OUTSIDE RECORDS SUMMARY | 2025-01-28 10:44 | XMS_ITS | Referral Summary ---
Author Organization [id number] Address [address] [place] [phone] Care Team Providers Care Car Coupler Name Role Phone Dianne Pandya NP Primary Care Provider [phone] Allergies Active Allergy Reactions Criticality Noted Date [...] on file Legal Sex Female 6:49 PM NURSING MANAGER Gender Identity Not on file Sexual Orientation [...] Plan of Treatment Not on file Insurance [facility] OPEN ACCESS Care Teams Car Coupler Relationship Specialty Start Date End Date Dianne Pandya NP PCP - General Nurse Practitioner 05/11/17
--- OUTSIDE RECORDS SUMMARY | 2025-01-28 10:44 | XMS_ITS | Encounter Summary ---
Author Organization [facility] Address [address] [place] [address] Phone Care Team Providers Care Retail Service Technician Name Role Phone Astrid Desir Primary Care Provider + Encounter Details Date Type Department Care Team (Late st Contact Info) Description 03/07/2024 Behavioral Health Patient Survey [facility] Services 1 [place] [address] Pamela Ross, [facility] [address] [place] [address] Social History Tobacco Use Types Packs/Day Years Used Date Smoking Tobacco: Never Smokeless Tobacco: Never Alcohol Use Standard Drinks/Week Comments Not Currently 0 (1 standard drink = 0.6 oz pur e alcohol) socially AHC Utilities Answer Date Recorded In the past 12 months has [employer] electric, gas, oil, or water company threatened [...] week 02/26/2024 How often do you attend [facility] or mandaen services? Never 02/26/2024 Do you belong to any clubs o r organizations such as yazidi groups, unions, fraternal or athletic groups, or [...] Total Score - Questions 1-9 13 12/09 [facility] of Occupat ional Health - [...] were you homeless or living in a usp (including now)? No 02/26/2024 Education Answer Date [...] Ready to change Department associated with goal: [facility] Steps to achieve [...] Ready to change Department associated with goal: [facility] Steps to achieve [...] documented as of this encounter Care Teams Retail Service Technician Relationship Specialty Start Date End Date Astrid Desir [address] [place] [address] PCP - General Physician Mergers And Acquisitions Consultant 08/18/22 documented as of this encounter
--- OUTSIDE RECORDS SUMMARY | 2025-01-28 10:44 | XMS_ITS | Encounter Summary ---
Author Organization [facility] Address [address] [place] [address] Phone Care Team Providers Care Commissioning Agent Name Role Phone Maribelljuliana Astrid OLIVIER Primary Care Provider + Encounter Details Date Type Department Care Team (Late st Contact Info) Description 07/23/2024 Behavioral Health [facility] Survey [facility] Behavioral Health Services 1 [place] [address] Pamela Ross, [facility] [address] [place] [address] Social History Tobacco Use Types Packs/Day Years Used Date Smoking Tobacco: Never Smokeless Tobacco: Never Alcohol Use Standard Drinks/Week Comments Not Currently 0 (1 standard drink = 0.6 oz pur e alcohol) socially AHC Utilities Answer Date Recorded In the past 12 months has [employer] electric, gas, oil, or water company threatened [...] do you attend [facility] or yarsanism services? Never 05/27/2024 Do you belong to any clubs o r organizations such as sabianism groups, unions, fraternal or athletic groups, or [...] Total Score - Questions 1-9 10 05/11 [facility] of Occupat ional Health - Occupational [...] were you homeless or living in a intermediate (including now)? No 05/27/2024 Education Answer Date [...] Ready to change Department associated with goal: [facility] Steps to achieve goal: [...] Ready to change Department associated with goal: [facility] Steps to achieve goal: [...] Depression Total Score: 10 024 2:37 PM BUSINESS CONTROL MANAGER documented as of this encounter Care Teams Commissioning Agent Relationship Specialty Start Date End Date Astrid Desir [address] [place] [address] PCP - General Physician Descriptive Catalog Librarian 08/18/22 documented as of this encounter
--- OUTSIDE RECORDS SUMMARY | 2025-01-28 10:44 | XMS_ITS | Clinical Summary ---
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
--- OUTSIDE RECORDS SUMMARY | 2025-01-28 10:44 | XMS_ITS | Clinical Summary ---
Author Organization [facility] Address [address] [place] [address] Phone Care Team Providers Care L[employer] Thread Winder Name Role Phone Astrid Desir Primary Care [...] 11/23/2024 9:15 AM CDT Outpatient Clinic Visit [facility] Behavioral Health Services 1 [place] [address] Pamela Ross LCSW Anxiety (Primary Dx) Discharge Disposition: Discharged to home or Selfcare 11/23/2024 Behavioral Health Patient Survey [facility] Behavioral Health Services 1 [place] [address] Pamela Ross LCSW 11/23/2024 Travel from Last [...] = 0.6 oz pur e alcohol) socially [email or web address] Utilities Answer Date Recorded In the past 12 months has [employer], gas, oil, or water [employer] threatened to shut off services in your [...] often do you attend chur ch or rastafari services? Never 08/22/2024 Do you belong to any clubs o r organizations such as samaritan groups, unions, fraternal or athletic groups, or [...] Total Score - Questions 1-9 0 08/11 [facility] of Occupat ional Health - [...] any time in the past 12 m [facility], were you homeless or living in a mcc (including now)? No 08/22/2024 Education Answer Date [...] Comments Blood Pressure 106/60 08/23/2024 8:42 AM CHAIR UPHOLSTERER Pulse 89 08/23/2024 8:42 AM CHAIR UPHOLSTERER Temperature 36.2 C (97.2 F) 08/23/2024 8:42 AM CHAIR UPHOLSTERER Respiratory Rate 16 08/26/2023 8:34 AM CHAIR UPHOLSTERER Oxygen Saturation 99% 08/23/2024 8:42 AM CHAIR UPHOLSTERER Inhaled Oxygen Concentration - - Weight 69.4 kg (153 lb) 08/23/2024 8:42 AM CHAIR UPHOLSTERER Height 172.7 cm (5' 8) 08/23/2024 8:42 AM CHAIR UPHOLSTERER Body Mass Index 23.26 08/23/2024 8:42 AM CHAIR UPHOLSTERER Plan of Treatment Health Maintenance Due Date [...] Ready to change Department associated with goal: [facility] Steps [...] Ready to change Department associated with goal: [facility] Steps [...] CDT Preventative health care (Adult) PATHOLOGY CYTOLOGY ENTERTAINMENT AGENT Routine 02/27/2018 from Last 3 Months or Most Recently Relevant to Health Maintenance Results * HEPATITIS C ANTIBODY (09/23/2020 1:48 PM CDT) hepatitis C antibody 0.08 <1 S/CO [facility] ARCH [id number] B 09/23/2020 10:17 PM CDT [facility] Comment: Signal/Cutoff ratio < 0.79 is Nondetected Signal/Cutoff ratio 0.80-0.99 is Grayzone Signal/Cutoff ratio > 0.99 is Detected Supplemental assays are recommended if signal/cutoff ratio is >/=1.00. Signal/cutoff ratio result >/= 5.00 is 97% predictive of positivity for recombinant immunoblot assay (RIBA) and will be reported to the [place] [facility] as required. Blood Venipuncture / Unknown 09/23/2020 1:48 PM CDT 09/23/2020 1:48 PM CDT us Akhil Jessica PAC CHEMISTRY ORDERABLES Fin al Result [facility] [address] [place] [address], * PATHOLOGY CYTOLOGY ENTERTAINMENT AGENT (02/27/2018) Other us Jose Antonio Parra MD PATHOLOGY/CYTOLOGY ORDERAB LES Final Result from Last 3 Months or Most Recently Relevant to Health Maintenance Insurance [employer] Care Teams Lastex Thread Winder Relationship Specialty Start Date End Date Astrid Desir, [facility] [address] [place] [address] PCP - General Physician Supervisor Core Drilling 08/18/22
--- OUTSIDE RECORDS SUMMARY | 2025-01-28 10:44 | XMS_ITS | Encounter Summary ---
Author Organization [facility] Address [address] [place] [address] Phone Care Team Providers Care Armed Guard Name Role Phone MaribellAstrid andrews Primary Care Provider + Encounter Details Date Type Department Care Team (Late st Contact Info) Description 11/23/2024 Behavioral Health Patient Survey [facility] Behavioral Health Services 1 [place] [address] Pamela Ross, [facility] [address] [place] [address] Social History Tobacco Use Types Packs/Day Years Used Date Smoking Tobacco: Never Smokeless Tobacco: Never Alcohol Use Standard Drinks/Week Comments Not Currently 0 (1 standard drink = 0.6 oz pur e alcohol) socially AHC Utilities Answer Date Recorded In the past 12 months has [email or web address] electric, gas, oil, or water company threatened [...] week 08/22/2024 How often do you attend [facility] or shinto services? Never 08/22/2024 Do you belong to any clubs o r organizations such as advent groups, unions, fraternal or athletic groups, or [...] Total Score - Questions 1-9 0 08/11 [facility] of Occupat ional Health - Occupational [...] living in a assisted (including now)? No 08/22/2024 Education Answer Date [...] Ready to change Department associated with goal: [facility] Steps to achieve [...] Ready to change Department associated with goal: [facility] Steps to achieve [...] Total Score: 0 08/23/19 25 8:45 AM PRESS ASSISTANT documented as of this encounter Care Teams Armed Guard Relationship Specialty Start Date End Date Astrid Desir [address] [place] [address] PCP - General Physician Nuclear Chemistry Technician 08/18/22 documented as of this encounter
--- OUTSIDE RECORDS SUMMARY | 2025-01-28 10:44 | XMS_ITS | Encounter Summary ---
Author Organization [facility] Address [address] [place] [address] Phone Care Team Providers Care Director Of Accounts Receivable Name Role Phone MaribellAstrid andrews Primary Care Provider + Encounter Details Date Type Department Care Team (Late st Contact Info) Description 01/05/2024 Behavioral Health [facility] Survey [facility] Services 1 [place] [address] Pamela Ross, [facility] [address] [place] [address] Social History Tobacco Use Types Packs/Day Years Used Date Smoking Tobacco: Never Smokeless Tobacco: Never Alcohol Use Standard Drinks/Week Comments Not Currently 0 (1 standard drink = 0.6 oz pur e alcohol) socially AHC Utilities Answer Date Recorded In the past 12 months has [employer], gas, oil, or water company threatened [...] week 12/25/2023 How often do you attend [facility] or restorationism services? Never 12/25/2023 Do you belong to [...] Total Score - Questions 1-9 13 12/09 [facility] of Occupat ional Health - Occupational Stress [...] living in a correction (including now)? No 12/25/2023 Education Answer Date [...] Ready to change Department associated with goal: [facility] Steps to [...] Ready to change Department associated with goal: [facility] Steps to [...] documented as of this encounter Care Teams Director Of Accounts Receivable Relationship Specialty Start Date End Date Astrid Desir [address] [place] [address] PCP - General Physician Pe[employer] Functional Analyst 08/18/22 documented as of this encounter
--- OUTSIDE RECORDS SUMMARY | 2025-01-28 10:44 | XMS_ITS | Clinical Summary ---
Author Organization [facility] Address [address] [place] [address] Care Team Providers Care Access Assoc Name Role Phone Unavailable Primary Care Provider Unavailabl e Source Comments [facility],non-owned Affiliates and Associated Physician Practices is amultiple site organization consisting of ambulatory clinics and hospital sitesin [place], [place], [place] and [place]. This disclosure is being madepursuant to the Care Everywhere program and may not contain all information available regarding this patient. Last updated 18.[facility] [employer] Allergies Active Allergy Reactions Criticality Noted Date [...] on file Legal Sex Female 8:26 AM SUSTAINABILITY PURCHASING AGENT Gender Identity Not on file Sexual Orientation Not on file Last Filed Vital Signs Vital Sign Reading Time Taken Comments Blood Pressure 128/84 08/25/2018 3:15 PM SUSTAINABILITY PURCHASING AGENT Pulse 97 08/09/2018 11:27 AM SUSTAINABILITY PURCHASING AGENT Temperature 36.7 C (98 F) 08/09/2018 10:13 AM SUSTAINABILITY PURCHASING AGENT Respiratory Rate 16 08/09/2018 11:27 AM SUSTAINABILITY PURCHASING AGENT Oxygen Saturation 98% 08/09/2018 11:27 AM SUSTAINABILITY PURCHASING AGENT Inhaled Oxygen Concentration - - Weight 95.3 kg (210 lb) 08/25/2018 3:15 PM SUSTAINABILITY PURCHASING AGENT Height 170.2 cm (5' 7) 08/25/2018 3:15 PM SUSTAINABILITY PURCHASING AGENT Body Mass Index 32.89 08/25/2018 3:15 PM SUSTAINABILITY PURCHASING AGENT Plan of Treatment Health Maintenance Due Date Last Done Comments HIV SCREENING 2010 HEPATITIS C SCREENING 04/08/2013 DTAP/TDAP/TD VACCINES (1 - Tdap) 2014 HEPATITIS B VACCINE (1 of 3 - 19+ 3-dose series) 2014 HPV VACCINE (1 - 3-dose SCDM series) 2022 COVID-19 VACCINE (1 - 2023-2 5 season) 2024 DEPRESSION SCREENING 07/11/2024 INFLUENZA VACCINE (#1) 2025 8, 04/10/2018 ZOSTER VACCINE (1 of 2) 2045 [...] patient's age to complete this topic Insurance [facility] [place] [address]
--- OUTSIDE RECORDS SUMMARY | 2025-01-28 10:44 | XMS_ITS | Encounter Summary ---
Author Organization [facility] Address [address] [place] [address] Phone Care Team Providers Care Sustainability Coach Name Role Phone Astrid Desir Primary Care Provider + Encounter Details Date Type Department Care Team (Late st Contact Info) Description 06/19/2024 Behavioral Health [facility] Survey [facility] Health Services 1 [place] [address] Pamela Ross, [facility] [address] [place] [address] Social History Tobacco Use Types Packs/Day Years Used Date Smoking Tobacco: Never Smokeless Tobacco: Never Alcohol Use Standard Drinks/Week Comments Not Currently 0 (1 standard drink = 0.6 oz pur e alcohol) socially [facility]HC Utilities Answer Date Recorded In the past 12 months has [employer] electric, gas, oil, or water company threatened [...] week 05/27/2024 How often do you attend [facility] or presybeterian services? Never 05/27/2024 Do you belong to any clubs o r organizations such as restorationist groups, unions, fraternal or athletic groups, or [...] Total Score - Questions 1-9 10 05/11 [facility] of Occupat ional Health - Occupational [...] were you homeless or living in a longterm (including now)? No 05/27/2024 Education Answer Date [...] Ready to change Department associated with goal: [facility] Steps to achieve goal: [...] Ready to change Department associated with goal: [facility] Steps to achieve goal: [...] Depression Total Score: 10 024 2:37 PM HOG CUTTER documented as of this encounter Care Teams Sustainability Coach Relationship Specialty Start Date End Date Astrid Desir PAC [address] [place] [address] PCP - General Physician Machines Technician 08/18/22 documented as of this encounter
--- OUTSIDE RECORDS SUMMARY | 2025-01-28 10:44 | XMS_ITS | Encounter Summary ---
Author Organization [facility] Address [address] [place] [address] Phone Care Team Providers Care Sales Service Technician Name Role Phone Astrid Desir Primary Care Provider + Encounter Details Date Type Department Care Team (Late st Contact Info) Description 05/14/2024 Behavioral Health Patient Survey [facility] [address] [place] [address] Pamela Ross, [facility] [address] [place] [address] Social History Tobacco Use Types Packs/Day Years Used Date Smoking Tobacco: Never Smokeless Tobacco: Never Alcohol Use Standard Drinks/Week Comments Not Currently 0 (1 standard drink = 0.6 oz pur e alcohol) socially [facility] Utilities Answer Date Recorded In the past 12 months has Generate electric, gas, oil, or water company threatened [...] How often do you attend [facility] or yazdanism services? Never 02/26/2024 Do you belong to any clubs o r organizations such as adventist groups, unions, fraternal or athletic groups, or [...] Total Score - Questions 1-9 13 12/09 [facility] - [...] were you homeless or living in a residential (including now)? No 02/26/2024 Education Answer Date [...] change Department associated with goal: [facility] Steps to achieve goal: [...] change Department associated with goal: [facility] Steps to achieve goal: [...] documented as of this encounter Care Teams Sales Service Technician Relationship Specialty Start Date End Date Astrid Desir PAC [address] [place] [address] PCP - General Physician Conductor [employer] 08/18/22 documented as of this encounter
[2025-01-28 11:22] VITALS: BP 106/67; PULSE 85
[2025-01-28 11:29] LABS: Add Urine Microscopic? NO; Appearance Urine Clear (Clear); Glucose Urine UA Negative (Negative); Leukocyte Esterase Ur Negative LEU/UL (Negative); Nitrate Urine Negative (Negative); Specific Grav Ur 1.009 (1.001-1.035)
--- NOTE | 2025-01-28 11:50 | PC.NURSE ---
Dr Acevedo notified of negative ROM plus and reassuring for gestation.
[2025-01-28 12:10] LABS: OBXCEM ROM Plus Negative (Negative)
--- NOTE | 2025-01-28 14:45 | P.PNOB_ITS ---
OB - Triage/Final Diagnosis Visit Information Date of evaluation: 01/28/25 Reason for evaluation: threatened labor Comments/Additional reasons for admission: I have assessed the risk for this patient, Lani Beasley, and determined that she would benefit from observation care. Evaluation Laboratory results: Laboratory Tests 01/28/25 01/28/25 11:19 11:57 Urine Color Yellow Urine Appearance Clear Urine pH 7.0 Ur Specific [place] 1.009 Urine Protein Negative Urine Glucose (UA) Negative Urine Ketones Negative Ur Blood (Man) Negative Urine Nitrate Negative Urine Bilirubin Negative Urine Urobilinogen 0.2 Leukocyte Esterase Rfl Negative Membranes Rupture Rom plus negative Vital signs: Vital Signs - 24 hr 01/28/25 11:22 Pulse Rate 85 Blood Pressure 106/67
== END 2025-01-28 11:57 | disposition home or self-care (01) ==
LOC: ANHOBOP 10:31 → ANHOBPP 10:56
PROVIDERS: PCP Physician Assistant; Visit Provider Obstetrics & Gynecology
DX: O42.90 Premature rupture of membranes, unspecified as to length of time between rupture and onset of labor, unspecified weeks of gestation (principal); Z3A.00 Weeks of gestation of pregnancy not specified
CPT/HCPCS: 59025; 81003; 84112; 99199

== ENCOUNTER 2025-04-11 09:17 | Observation (INO) | payer OTHER, SELFPAY ==
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
[2025-04-11 09:32] VITALS: BMI 35.2
[2025-04-11 09:38] VITALS: BP 115/80; PULSE 99
[2025-04-11 09:45] VITALS: BP 121/74; PULSE 85
--- NOTE | 2025-04-11 09:58 | OBADM ---
This patient, Lani Forte, admitted to the OB room OB Post 116 for observation. Patient/family oriented to hospital policies and general routines including ID bracelet, bed and alarms, visiting hours, pain management, procedures, bathroom and other care routines, personal items, smoking policy, room service/diet, and visiting hours. Patient/Family are encouraged to report perceived risks to care and to ask questions if they do not understand what they are told or what they should do.
[2025-04-11 10:00] VITALS: BP 111/74; PULSE 89
[2025-04-11 10:12] VITALS: BP 115/78; PULSE 90
[2025-04-11 10:15] VITALS: BP 122/78; PULSE 90; PULSE 99
[2025-04-11] MEDS: LABETALOL HCL 100 MG TABLET 200 MG PO (10:15)
[2025-04-11] MEDS: CYCLOBENZAPRINE HCL 10 MG TABLET PO (10:15)
[2025-04-11] MEDS: IBUPROFEN 400 MG TABLET 800 MG PO (10:21)
--- NOTE | 2025-04-12 08:46 | PM.OBTRLD ---
OB - Triage/Final Diagnosis Visit Information Date of evaluation: 04/11/25 Reason for evaluation: threatened labor Comments/Additional reasons for admission: I have assessed the risk for this patient, Lani Forte, and determined that she would benefit from observation care. Evaluation Vital signs: Vital Signs - 24 hr 04/11/25 09:32 04/11/25 09:38 04/11/25 09:45 Pulse Rate 99 85 Blood Pressure 115/80 121/74 Oxygen Delivery Room Air 04/11/25 10:00 04/11/25 10:12 04/11/25 10:15 Pulse Rate 89 90 99 Blood Pressure 111/74 115/78 122/78 Oxygen Delivery 04/11/25 10:15 Pulse Rate 90 Blood Pressure Oxygen Delivery
== END 2025-04-11 11:28 | disposition home or self-care (01) ==
PROVIDERS: Admitting Provider Obstetrics & Gynecology; PCP Physician Assistant; Visit Provider Obstetrics & Gynecology
DX: O47.03 False labor before 37 completed weeks of gestation, third trimester (principal); Z3A.34 34 weeks gestation of pregnancy
CPT/HCPCS: 76819; A9270; G0378; G0379

== ENCOUNTER 2025-04-11 11:33 | Emergency (ER) | payer OTHER, SELFPAY ==
[2025-04-11 11:47] VITALS: BP 100/63; PULSE 94; RESP 16; TEMP 36.2; O2SAT 99
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
[2025-04-11] MEDS: ACETAMINOPHEN 500 MG TABLET 1000 MG PO (13:08)
== END 2025-04-11 13:09 | disposition home or self-care (01) ==
PROVIDERS: Emergency Provider Emergency Medicine; PCP Physician Assistant
DX: O9A.213 Injury, poisoning and certain other consequences of external causes complicating pregnancy, third trimester (principal); S13.4XXA Sprain of ligaments of cervical spine, initial encounter; Z3A.34 34 weeks gestation of pregnancy; V43.52XA Car driver injured in collision with other type car in traffic accident, initial encounter
CPT/HCPCS: 99282; A9270; L0140

== ENCOUNTER 2025-04-22 13:36 | Outpatient (CLI) | payer OTHER, SELFPAY ==
[2025-04-22 14:01] VITALS: BP 141/88; PULSE 120
[2025-04-22 14:16] VITALS: BP 138/85; PULSE 116
[2025-04-22 14:17] LABS: Hematocrit 30.9 % (37.0-47.0); Hemoglobin 10.4 g/dL (12.0-15.0); Immature Granulocyte Percent A 2.4 % (0-0.5); Lymphocytes Absolute Auto 1.73 K/mm3 (0.9-3.2); Mean Corpuscular HGB Conc 33.7 g/dl (32-36); Mean Corpuscular Hemoglobin 29.2 pg (26-34); Mean Corpuscular Volume 86.8 fl (80-100); Nucleated Red Blood Cells Absolute Auto 0.000 K/mm3 (0.0-0.012); Nucleated Red Blood Cells Perc 0.0 % (0.0-0.2); Platelet Count Result 238 k/mm3 (150-375); Red Blood Count 3.56 M/mm3 (4.2-5.4); White Blood Count 9.8 K/mm3 (4.5-10.0)
[2025-04-22 14:23] LABS: Add Urine Microscopic? YES; Appearance Urine Cloudy (Clear); Glucose Urine UA Negative (Negative); Leukocyte Esterase Ur 1+ LEU/UL (Negative); Nitrate Urine Negative (Negative); Specific Grav Ur 1.020 (1.001-1.035)
[2025-04-22 14:28] LABS: Alanine Aminotransferase 17 U/L (6-35); Albumin Level 3.4 g/dL (3.5-5.1); Alkaline Phosphatase 114 U/L (38-126); Anion Gap 9 mmol/L (4-12); Aspartate Amino Transferase 24 U/L (14-36); Bilirubin,Total 0.3 mg/dL (0.2-1.3); Blood Urea Nitrogen 4 mg/dL (7-17); Calcium 8.4 mg/dL (8.4-10.2); Carbon Dioxide 18 mmol/L (22-30); Chloride 106 mmol/L (98-107); Estimated Glomerular Filt Rate > 60; Glucose 112 mg/dL (65-110); Potassium 3.5 mmol/L (3.4-5.0); Sodium 133 mmol/L (137-145); Total Protein 6.9 g/dL (6.3-8.2); Total Protein Urine Random 15 mg/dL; Ur Ttl Prot Creatinine Ratio 0.09 mg/mg (0-0.20); Uric Acid 4.3 mg/dL (2.5-7.5)
[2025-04-22 14:31] VITALS: BP 132/83; PULSE 117
[2025-04-22 14:46] VITALS: BP 146/88; PULSE 117
--- NOTE | 2025-04-22 14:50 | PC.NURSE ---
Dr Acevedo notified of lab results, BP's and reactive tracing. Ok to dc home with 24 hour urine and repeat celestone tomorrow. Patient to follow up in office on Tuesday.
[2025-04-22] MEDS: BETAMETHASONE SOD PHOS/ACETATE 30 MG/5 ML VIAL 12 MG IM (15:06)
[2025-04-22 15:14] VITALS: BMI 35.6
== END 2025-04-22 15:14 | disposition home or self-care (01) ==
LOC: ANHOBOP 13:39 → ANHOBPP 13:40
PROVIDERS: PCP Physician Assistant; Visit Provider Obstetrics & Gynecology
DX: O13.9 Gestational [pregnancy-induced] hypertension without significant proteinuria, unspecified trimester (principal); Z3A.00 Weeks of gestation of pregnancy not specified
CPT/HCPCS: 36415; 59025; 80053; 81001; 82570; 84156; 84550; 85025; 87081; 87086; 96372; 99199; J0702

== ENCOUNTER 2025-04-23 15:48 | Outpatient (CLI) | payer OTHER, SELFPAY ==
[2025-04-23 15:48] VITALS: BMI 35.6
[2025-04-23] MEDS: BETAMETHASONE SOD PHOS/ACETATE 30 MG/5 ML VIAL 12 MG IM (16:10)
[2025-04-23 18:23] LABS: Total Volume 24 Hour Urine 3000 ml
[2025-04-23 18:29] LABS: Specific Gravity Ur 1.010
[2025-04-23 18:35] LABS: Total Protein Urine 24 Hr 390 mg/24hr (28-141)
[2025-04-23 18:38] LABS: Creatinine Clearance Urine 192.1 ml/min (75-125); Serum Creat 0.51
[2025-04-23 18:51] LABS: Total Protein Urine Random 13 mg/dL
== END 2025-04-23 15:49 | disposition home or self-care (01) ==
PROVIDERS: PCP Physician Assistant; Visit Provider Obstetrics & Gynecology
DX: Z36.84 Encounter for antenatal screening for fetal lung maturity (principal)
CPT/HCPCS: 81050; 82575; 84156; 96372; J0702

== ENCOUNTER 2025-04-24 08:29 | Inpatient (IN) | payer OTHER, SELFPAY ==
[2025-04-24] VITALS (129 sets, daily range): BP systolic 69–145; BP diastolic 37–104; PULSE 28–141; RESP 16; TEMP 36.2–36.8; O2SAT 86–100; BMI 35.5
--- NOTE | 2025-04-24 09:20 | LDADM ---
This patient, Lani Forte, was admitted to Labor/Delivery/Recovery 107 on 04/24/25 at 08:29. Plans for labor, pain management and were discussed with patient. Patient/family oriented to hospital policies and general routines including ID bracelet, bed and alarms, visiting hours, pain management, procedures, bathroom and other care routines, personal items, smoking policy, room service/diet and guest tray routines, infant security routines, and visiting hours. Patient/Family are encouraged to report perceived risks to care and to ask questions if they do not understand what they are told or what they should do. See OBIX for further documentation.
[2025-04-24 09:24] LABS: Hematocrit 29.6 % (37.0-47.0); Hemoglobin 10.1 g/dL (12.0-15.0); Immature Granulocyte Percent A 3.4 % (0-0.5); Lymphocytes Absolute Auto 2.03 K/mm3 (0.9-3.2); Mean Corpuscular HGB Conc 34.1 g/dl (32-36); Mean Corpuscular Hemoglobin 29.7 pg (26-34); Mean Corpuscular Volume 87.1 fl (80-100); Nucleated Red Blood Cells Absolute Auto 0.000 K/mm3 (0.0-0.012); Nucleated Red Blood Cells Perc 0.0 % (0.0-0.2); Platelet Count Result 262 k/mm3 (150-375); Red Blood Count 3.40 M/mm3 (4.2-5.4); White Blood Count 16.9 K/mm3 (4.5-10.0)
--- NOTE | 2025-04-24 09:35 | PM.IMHP ---
H&P: HPI History of Present Illness Date/Time: 04/24/25 09:35 Chief Complaint: Preeclampsia Narrative: a 30-year-old 2 para 1 at 36-,1/7 weeks gestation confirmed by early ultrasound who presents for induction of labor. A 24hour urine showed 400g of protein in 24hours she has had worsening blood pressure that has responded somewhat to labetalol. Then later for preeclamptic labs being positive she is admitted for induction of labor Review of Systems Review of Systems: CONSTITUTIONAL: Reports of chills EYES: Denies visual changes, redness, or discharge. ENT: Reports of sore throat, postnasal drainage CARDIOVASCULAR: Denies chest pain, palpitations, or edema. RESPIRATORY: Ports of cough without dyspnea GASTROINTESTINAL: Denies abdominal pain, nausea, vomiting, or diarrhea. GENITOURINARY: Denies dysuria or hematuria. SKIN: Denies rash or itching. MUSCULOSKELETAL: Denies back pain, joint pain, or myalgia. NEUROLOGIC: Reports of lightheadedness All other systems reviewed are negative, except as documented in HPI. [facility] Past Medical History Medical History Gestational hypertension Migraines Anxiety and depression Endometriosis Obesity and not yet delivered Family History Family History Grandparent Diabetes mellitus Social History Social History Smoking status: Never smoker Second hand tobacco smoke exposure: No Substance use: never Do You Feel Safe in your Home?: Yes Lack of Transportation: No Lack of Food: Never True Current Housing: I Have Housing Concerned About Future Housing: No Difficulty Paying Gas/Electric Bills: No Difficulty Paying for Meds: No Currently Unemployed: No Education: Bachelor's Degree Difficulty w/ Childcare or Family Care: No Spiritual care concerns: No Meds Home Medications and Allergies Home Medications ?Medication ?Instructions ?Recorded ?Confirmed ?Type vit no.95-ferrous 1 tablet PO DAILY 01/10/25 04/24/25 History fumarate 28 mg-folic acid 800 mcg tablet () labetalol 200 mg tablet 200 mg PO Q8H 04/11/25 04/24/25 History Allergies Allergy/AdvReac Type Severity Reaction Status Date / Time sulfamethoxazole Allergy Unknown HIVES Verified 04/24/25 09:21 Vital Signs Vital Signs - 24 hr 04/24/25 08:54 04/24/25 08:54 04/24/25 08:54 Pulse Rate Blood Pressure 112/74 Pulse Oximetry 86 L 89 L 04/24/25 08:54 04/24/25 08:54 Pulse Rate 104 H Blood Pressure Pulse Oximetry 95 Exam Const: General: cooperative, healthy appearing, comfortable and overweight Orientation/consciousness: oriented to person, oriented to place and oriented to time Resp: Effort & Inspection: normal respiratory effort Cardio: Rate: regular rate Rhythm: regular rhythm Heart sounds: S1 normal heart sound present and S2 normal heart sound present GI: Inspection: normal to inspection (Gravid soft uterus) : External Female Exam: normal external appearance Speculum Exam - Vagina: normal appearance of the vagina Speculum Exam - Cervix: normal appearance of the cervix (Cervix 2-3/60/-2. AROM clear. FHT is reassuring) H&P: Results Labs Labs: Short CBC 04/24/25 Range/Units 09:10 WBC 16.9 H (4.5-10.0) K/mm3 Hgb 10.1 L (12.0-15.0) g/dL Hct 29.6 L (37.0-47.0) % Plt Count 262 (150-375) k/mm3 Assessment and Plan Assessment and plan (1) Preeclampsia: Code(s): O14.90 - Unspecified pre-eclampsia, unspecified trimester Status: Acute Plan Patient has received 2 doses of Celestone prior to induction. Group B strep screen is pending C and she will thus be treated for unknown status. Medical induction labor was undertaken. Spontaneous vaginal delivery is expected. She is an epidural candidate
[2025-04-24] MEDS: LACTATED RINGERS 1,000 ML 125 ML IV CONT ×2 (09:47→14:58)
[2025-04-24 09:48] LABS: Alanine Aminotransferase 24 U/L (6-35); Albumin Level 3.6 g/dL (3.5-5.1); Alkaline Phosphatase 127 U/L (38-126); Anion Gap 13 mmol/L (4-12); Aspartate Amino Transferase 29 U/L (14-36); Bilirubin,Total 0.3 mg/dL (0.2-1.3); Blood Urea Nitrogen 7 mg/dL (7-17); Calcium 10.5 mg/dL (8.4-10.2); Carbon Dioxide 18 mmol/L (22-30); Chloride 103 mmol/L (98-107); Estimated Glomerular Filt Rate > 60; Glucose 128 mg/dL (65-110); Potassium 3.4 mmol/L (3.4-5.0); Sodium 134 mmol/L (137-145); Total Protein 7.1 g/dL (6.3-8.2)
[2025-04-24] MEDS: AMPICILLIN SODIUM 2 GM in SODIUM CHLORIDE 0.9% IV 100 ML 200 ML IVPB (09:48)
[2025-04-24 10:15] LABS: Syphilis IgG/IgM Antibody Non-Reactive (Nonreactive)
[2025-04-24] MEDS: OXYTOCIN 30 UNITS/NS 500 ML 30 UNITS/500 ML BAG IV CONT (10:28)
--- NOTE | 2025-04-24 11:49 | PM.OBPNLAB ---
Pain Control Date/time seen: 04/24/25 11:49 Pain control: tolerating well Pelvic Exam Dilation (cm): 3 Effacement (%): 75 station: -2
[2025-04-24] MEDS: AMPICILLIN SODIUM 1 GM in SODIUM CHLORIDE 0.9% IV 50 ML 100 ML IVPB ×2 (13:49→17:48)
--- NOTE | 2025-04-24 15:22 | WPDANESEPPF ---
Anes - Initial Pre Proc Eval Procedure: labor epidural Date/Time: 04/24/25 15:22 Surgeon: Jose Antonio Parra MD Pre Op Diagnosis: labor pain Pre Op Diagnosis: IOL Patient Data Age: 30 Gender: F Height: 1.73 m Weight: 106 kg Last Vital Signs Temp 36.4 C L 04/24/25 13:50 Pulse 76 04/24/25 15:19 BP 132/67 04/24/25 15:19 Pulse Ox 98 04/24/25 15:20 O2 Del Method Room Air 04/24/25 10:11 Allergies Allergy/AdvReac Type Severity Reaction Status Date / Time sulfamethoxazole Allergy Unknown HIVES Verified 04/24/25 09:21 Home Medications ?Medication ?Instructions ?Recorded ?Confirmed ?Type vit no.95-ferrous 1 tablet PO DAILY 01/10/25 04/24/25 History fumarate 28 mg-folic acid 800 mcg tablet () labetalol 200 mg tablet 200 mg PO Q8H 04/11/25 04/24/25 History Laboratory Tests 04/24/25 09:10 WBC 16.9 H K/mm3 (4.5-10.0) RBC 3.40 L M/mm3 (4.2-5.4) Hgb 10.1 L g/dL (12.0-15.0) Hct 29.6 L % (37.0-47.0) MCV 87.1 fl (80-100) MCH 29.7 pg (26-34) MCHC 34.1 g/dl (32-36) RDW 13.3 % (11.5-14.5) Plt Count 262 k/mm3 (150-375) MPV 10.8 H fl (7.4-10.4) Immature Gran % (Auto) 3.4 H % (0-0.5) Neut % (Auto) 77.7 H % (45.5-73.1) Lymph % (Auto) 12.0 L % (18.3-44.2) [place] % (Auto) 6.6 % (2.6-8.5) Eos % (Auto) 0.0 % (0-4.4) Baso % (Auto) 0.3 % (0.2-1.2) Lymph # (Auto) 2.03 K/mm3 (0.9-3.2) [place] # (Auto) 1.1 H K/mm3 (0.1-0.6) Eos # (Auto) 0.0 K/mm3 (0-0.3) Baso # (Auto) 0.1 K/mm3 (0.0-0.1) Abs Immat Gran (auto) 0.57 H K/mm3 (0.00-0.031) Absolute Neuts (auto) 13.2 H K/mm3 (1.3-6.7) Absolute Nucleated RBC 0.000 K/mm3 (0.0-0.012) Nucleated RBC % 0.0 % (0.0-0.2) Sodium 134 L mmol/L (137-145) Potassium 3.4 mmol/L (3.4-5.0) Chloride 103 mmol/L (98-107) Carbon Dioxide 18 L mmol/L (22-30) Anion Gap 13 H mmol/L (4-12) BUN 7 mg/dL (7-17) Creatinine 0.57 L mg/dL (0.7-1.0) Estim Creat Clear Calc Not Reportable Estimated GFR > 60 (59 - ) Glucose 128 H mg/dL (65-110) Calcium 10.5 H mg/dL (8.4-10.2) Total Bilirubin 0.3 mg/dL (0.2-1.3) AST 29 U/L (14-36) ALT 24 U/L (6-35) Alkaline Phosphatase 127 H U/L (38-126) Total Protein 7.1 g/dL (6.3-8.2) Albumin 3.6 g/dL (3.5-5.1) Syphilis IgG/IgM Ab Non-reactive (Nonreactive) Blood Type O Positive Antibody Screen Negative Patient hx anesthesia problems: none Family hx anesthesia problems: none Results Review: All pre-operative results and documents have been reviewed as part of the pre-operative evaluation. [facility] Past Medical History Medical History Gestational hypertension Migraines Anxiety and depression Endometriosis Obesity and not yet delivered Family History Family History Grandparent Diabetes mellitus Social History Social History Smoking status: Never smoker Second hand tobacco smoke exposure: No Substance use: never Do You Feel Safe in your Home?: Yes Lack of Transportation: No Lack of Food: Never True Current Housing: I Have Housing Concerned About Future Housing: No Difficulty Paying Gas/Electric Bills: No Difficulty Paying for Meds: No Currently Unemployed: No Education: Bachelor's Degree Difficulty w/ Childcare or Family Care: No Spiritual care concerns: No Anes - Eval Final PreProcedure Day of Procedure 04/24/25 15:22 Patient weight: obese ASA classification: III Anesthetic plan: proceed Anesthesia type and monitoring: regional epidural and standard monitoring Results Review: All pre-operative results and documents have been reviewed as part of the pre-operative evaluation. Informed Consent: The patient's anesthetic plan and its attendant risks and benefits were discussed with the patient/family/POA. Questions were solicited and answers provided to the satisfaction of the patient/family/POA.
--- NOTE | 2025-04-24 16:12 | PM.OBPNLAB ---
Pain Control Date/time seen: 04/24/25 16:12 Pain control: tolerating well and epidural Pelvic Exam Dilation (cm): 4 Effacement (%): 75 station: -2
[2025-04-24] MEDS: ONDANSETRON INJ 4 MG/2 ML VIAL IV PUSH (17:48)
[2025-04-24] MEDS: OXYTOCIN 30 UNITS/NS 500 ML 30 UNITS/500 ML BAG 125 UNITS IV CONT (18:59)
--- NOTE | 2025-04-24 19:05 | P.PCNOB_ITS ---
OB - Vaginal Delivery Note Procedure Delivery date: 04/24/25 Events: Preeclampsia w/o severe features Induction method: AROM Delivery augmentation: Pitocin Delivery monitor: External FHT, External Uterine and Internal Uterine Route of delivery: Episiotomy description: None Laceration Description: Perineal - 1st Degree Delivery repair: vicryl Specimen: No Quantitative Blood Loss (ml): 62 Anesthesia type: Epidural Disposition: Floor Complications: No immediate complications Narrative: Patient was admitted for induction of labor secondary to elevated blood pres sures at 36 weeks she had received 2 doses of Celestone prior and her 24hour urine was consistent with and induced hypertension. Artificial rupture membranes performed in the morning. She progressed an unremarkable 1st stage of labor had epidural anesthesia placed when she was complete she pushed delivered head spontaneously in the PAULETTE position. Nuchal cord checked noted be loose x1 ring around the occiput anterior posterior shoulder delivered spontaneously. Cord clamped and was cut and passed off the table given Apgars of 9 [id number] 9 [id number]. Cord blood was drawn. Placenta delivered intact spontaneously. Twenty of Pitocin placed in the IV to help firm the uterus. After inspecting the vagina a small 1st degree sulcal laceration was noted a figure-eight 0 Vicryl placed QBL was 62cc. All sponge, needle, instrument counts were correct. There were no immediate complications she did receive 3 doses of ampicillin for unknown group B strep status
--- NOTE | 2025-04-24 19:08 | P.DS_ITS ---
DS: Admitting Diagnosis Discharge Date 04/26/2025 Admitting Diagnosis Preeclampsia/36 week DS: Discharge Diagnosis Discharge Diagnosis (1) Preeclampsia: Code(s): O14.90 - Unspecified pre-eclampsia, unspecified trimester Status: Acute DS: Summary Hospital Course Reason for hospitalization: Patient was admitted at 3617 weeks gestation with -induced hypertension proven by a 24hour urine and elevated blood pressures Hospital Course: Patient underwent spontaneous vaginal delivery on 04/24/25. Her hospital course unremarkable. She remained afebrile. She was up, voiding without difficulty, eating regular diet, ambulating, and generally without complaints. Time Spent with Patient Time attestation: Total time spent providing and/or coordinating discharge services: Exam Const: General: cooperative, healthy appearing, comfortable and overweight Orientation/consciousness: oriented to person, oriented to place and oriented to time Resp: Effort & Inspection: normal respiratory effort Cardio: Rate: regular rate Rhythm: regular rhythm Heart sounds: S1 normal heart sound present and S2 normal heart sound present GI: Inspection: normal to inspection (Gravid soft uterus) : External Female Exam: normal external appearance Speculum Exam - Vagina: normal appearance of the vagina Speculum Exam - Cervix: normal appearance of the cervix (Cervix 2-3/60/-2. AROM clear. FHT is reassuring) DS: Data Data Completed and Pending Labs on day of discharge: Labs from last 24 hours 04/24/25 09:10 WBC 16.9 H RBC 3.40 L Hgb 10.1 L Hct 29.6 L MCV 87.1 MCH 29.7 MCHC 34.1 RDW 13.3 Plt Count 262 MPV 10.8 H Immature Gran % (Auto) 3.4 H Neut % (Auto) 77.7 H Lymph % (Auto) 12.0 L [place] % (Auto) 6.6 Eos % (Auto) 0.0 Baso % (Auto) 0.3 Lymph # (Auto) 2.03 [place] # (Auto) 1.1 H Eos # (Auto) 0.0 Baso # (Auto) 0.1 Abs Immat Gran (auto) 0.57 H Absolute Neuts (auto) 13.2 H Absolute Nucleated RBC 0.000 Nucleated RBC % 0.0 Sodium 134 L Potassium 3.4 Chloride 103 Carbon Dioxide 18 L Anion Gap 13 H BUN 7 Creatinine 0.57 L Estim Creat Clear Calc Not Reportable Estimated GFR > 60 Glucose 128 H Calcium 10.5 H Total Bilirubin 0.3 AST 29 ALT 24 Alkaline Phosphatase 127 H Total Protein 7.1 Albumin 3.6 Syphilis IgG/IgM Ab Non-reactive Blood Type O Positive Antibody Screen Negative Discharge Plan Discharge Attending physician on discharge: Jose Antonio Black Discharging Clinician: Jose Antonio Black Patient Disposition: Home Activity: may shower, no straining and pelvic rest Diet: heart healthy Wound Care Instructions: follow printed instructions Patient Instructions: Antibiotic Form Patient Language: Bangladeshi Stand Alone Forms: General Discharge Information Follow-up/Referrals: Jose Antonio Black MD [Physician, STOCK [employer] INSPECTOR] Discharge Medications: Continued PNV no.95-ferrous fumarate-FA [] 28 mg iron- 800 mcg tablet 1 tablet PO DAILY labetalol 200 mg tablet 200 mg PO Q8H Date of admission: 04/24/25 08:29 Primary Care Provider: Karlee,Astrid Villalobos Admitting Provider: Jose Antonio Black Attending physician on admission: Jose Antonio Black Condition: Stable
[2025-04-24] MEDS: BENZOCAINE 20% AER SPR (*SP) 56 GM CAN 1 SPRAY TOPICAL (20:09)
[2025-04-24] MEDS: WITCH HAZEL 40 PADS 1 PAD TOPICAL (20:09)
--- NOTE | 2025-04-24 20:55 | OBPPTRN ---
Patient transferred to post room #278 via wheelchair. Support person present. Oriented to unit, room, information board, rooming in, admission packet and security measures. Patient verbalizes understanding.
[2025-04-24] MEDS: ACETAMINOPHEN 325 MG TABLET 650 MG PO (23:25)
[2025-04-25 00:50] VITALS: BP 100/57; PULSE 77; RESP 16; TEMP 36.6; O2SAT 98
[2025-04-25] MEDS: IBUPROFEN 600 MG TABLET PO ×3 (00:53→16:00)
[2025-04-25 04:00] VITALS: BP 120/69
[2025-04-25 04:56] LABS: Hematocrit 25.7 % (37.0-47.0); Hemoglobin 8.5 g/dL (12.0-15.0)
--- NOTE | 2025-04-25 07:03 | P.PNOB_ITS ---
OB - PN: Subj Subjective Date/time seen: 04/25/25 07:03 Patient comments: no complaints and tolerating diet [place] baby status: doing well OB - PN: Obj Data Labs 04/25/25 03:41 04/24/25 09:10 Labs: Laboratory Results - last 24 hr 04/24/25 04/25/25 09:10 03:41 WBC 16.9 H RBC 3.40 L Hgb 10.1 L 8.5 L Hct 29.6 L 25.7 L MCV 87.1 MCH 29.7 MCHC 34.1 RDW 13.3 Plt Count 262 MPV 10.8 H Immature Gran % (Auto) 3.4 H Neut % (Auto) 77.7 H Lymph % (Auto) 12.0 L [place] % (Auto) 6.6 Eos % (Auto) 0.0 Baso % (Auto) 0.3 Lymph # (Auto) 2.03 [place] # (Auto) 1.1 H Eos # (Auto) 0.0 Baso # (Auto) 0.1 Abs Immat Gran (auto) 0.57 H Absolute Neuts (auto) 13.2 H Absolute Nucleated RBC 0.000 Nucleated RBC % 0.0 Sodium 134 L Potassium 3.4 Chloride 103 Carbon Dioxide 18 L Anion Gap 13 H BUN 7 Creatinine 0.57 L Estim Creat Clear Calc Not Reportable Estimated GFR > 60 Glucose 128 H Calcium 10.5 H Total Bilirubin 0.3 AST 29 ALT 24 Alkaline Phosphatase 127 H Total Protein 7.1 Albumin 3.6 Syphilis IgG/IgM Ab Non-reactive Blood Type O Positive Antibody Screen Negative OB - PN A/P Assessment and Plan (1) Term : Code(s): Z34.90 - Encounter for supervision of normal , unspecified, unspecified trimester Status: Acute (2) Preeclampsia: Code(s): O14.90 - Unspecified pre-eclampsia, unspecified trimester Status: Acute Plan routine care Time Spent With Patient Time: Total time spent is greater than 50% in coordination of care (as documented) at patient's floor/unit and/or counseling patient: Review of Systems 2 Review of Systems: CONSTITUTIONAL: Reports of chills EYES: Denies visual changes, redness, or discharge. ENT: Reports of sore throat, postnasal drainage CARDIOVASCULAR: Denies chest pain, palpitations, or edema. RESPIRATORY: Ports of cough without dyspnea GASTROINTESTINAL: Denies abdominal pain, nausea, vomiting, or diarrhea. GENITOURINARY: Denies dysuria or hematuria. SKIN: Denies rash or itching. MUSCULOSKELETAL: Denies back pain, joint pain, or myalgia. NEUROLOGIC: Reports of lightheadedness All other systems reviewed are negative, except as documented in HPI. Exam 2 Const: General: cooperative, healthy appearing, comfortable and overweight Orientation/consciousness: oriented to person, oriented to place and oriented to time Resp: Effort & Inspection: normal respiratory effort Cardio: Rate: regular rate Rhythm: regular rhythm Heart sounds: S1 normal heart sound present and S2 normal heart sound present GI: Inspection: normal to inspection (Gravid soft uterus) : External Female Exam: normal external appearance Speculum Exam - Vagina: normal appearance of the vagina Speculum Exam - Cervix: normal appearance of the cervix (Cervix 2-3/60/-2. AROM clear. FHT is reassuring)
[2025-04-25 07:05] VITALS: BP 115/54; PULSE 66; RESP 18; TEMP 36.6; O2SAT 99
[2025-04-25] MEDS: DOCUSATE SODIUM 100 MG CAPSULE PO ×2 (09:14→16:00)
[2025-04-25] MEDS: MULTIVIT/MIN/PREN/FOL AC/IRON TABLET 1 TAB PO (09:14)
--- NOTE | 2025-04-25 10:58 | WPDANLDPN2 ---
Anes-Prog Note L&D Date/Time: 04/25/25 10:58 Comfortable throughout: labor and delivery Neuraxial method: epidural Epidural/Spinal procedure site: clean & non-tender Neuro status: Neuro function grossly intact. Cardiovascular status: normal Respiratory status: normal Airway patency: baseline Mental status: baseline Post-Op hydration status: normal Vital Signs: Last Vital Signs Temp 36.6 C 04/25/25 07:05 Pulse 66 04/25/25 07:05 Resp 18 04/25/25 07:05 BP 115/54 L 04/25/25 07:05 Pulse Ox 99 04/25/25 07:05 O2 Del Method Room Air 04/24/25 21:10 Pain score (VAS): 07/20 I/O: Intake & Output 04/24/25 04/25/25 04/25/25 23:59 07:59 15:59 Output Total 562 1200 Balance -562 -1200 Post-procedural complaints: none Patient feedback: Patient satisfied with anesthetic care.
--- NOTE | 2025-04-25 11:30 | PC.NURSE ---
Consulted with patient to assess needs related to . Discussed with mother her successes, concerns and any questions she has. Per mother with her first baby, she was not interested in and would only take a bottle, so she pumped and bottle fed. Mother has already pumped and has 40mls in the breast milk refrigerator. We reviewed working with the , supporting breast, protecting her nipples with an optimal deep latch, good positioning, and good hand washing. Encouraged understanding the benefits of skin to skin, responding to feeding cues, frequencies of feeding 8-12 times in 24 hours (approximately 2-3 hours), duration of feedings, milk production, intake/output feeding sheet and signs of adequate intake encouraging swallowing at the breast. Reviewed positioning and alignment, supporting breast, off-centered (asymmetrical latch) and leading with the chin with big, open, wide gape. attempted to latch to the [right] breast in [cross cradle] position. Education given to the mother of how to visualize the suckling (with good rocking jaw motion) swallows (dropping of the lower jaw) and how to listen for drinking at the breast (the ka sound). The was [not able] to latch to mother, very sleepy at the breast. Mother is okay with feeding a bottle of pumped breast milk at this time and then she will use her pump again to build up a supply, discussed the 15-15-15 feeding plan and parents were on board with since infant is a 36 weeker. Parents to cll out if they have any issues bottle feeding the infant. Nipple care reviewed with optimal latch, good positioning and using clean hands when touching her breast. Resources used to facilitate learning were used from the [visual handouts/ tool/mom and baby guide]. Mother voiced understanding of the education shared, to call for assistance if the infant does not latch or if there is discomfort with or any concerns. Reported to the Primary RN.
[2025-04-25 12:20] VITALS: BP 109/77; PULSE 58; RESP 16; TEMP 36; O2SAT 100
[2025-04-25 16:45] VITALS: BP 108/73; PULSE 64; RESP 16; TEMP 36.8; O2SAT 99
[2025-04-25 19:45] VITALS: BP 110/73; PULSE 98; RESP 16; TEMP 36.6; O2SAT 98
[2025-04-26] VITALS: BP 107/73; PULSE 70
[2025-04-26 04:10] VITALS: BP 111/74; PULSE 70; RESP 16; TEMP 37; O2SAT 98
--- NOTE | 2025-04-26 06:30 | PM.OBPNVD ---
OB - PN: Subj Subjective Date/time seen: 04/26/25 06:30 Patient comments: no complaints, pain well controlled and tolerating diet [place] baby status: doing well OB - PN: Obj Data Labs 04/25/25 03:41 04/24/25 09:10 OB - PN A/P Assessment and Plan (1) Term : Code(s): Z34.90 - Encounter for supervision of normal , unspecified, unspecified trimester Status: Acute (2) Preeclampsia: Code(s): O14.90 - Unspecified pre-eclampsia, unspecified trimester Status: Acute Time Spent With Patient Time: Total time spent is greater than 50% in coordination of care (as documented) at patient's floor/unit and/or counseling patient: Review of Systems Review of Systems: CONSTITUTIONAL: Reports of chills EYES: Denies visual changes, redness, or discharge. ENT: Reports of sore throat, postnasal drainage CARDIOVASCULAR: Denies chest pain, palpitations, or edema. RESPIRATORY: Ports of cough without dyspnea GASTROINTESTINAL: Denies abdominal pain, nausea, vomiting, or diarrhea. GENITOURINARY: Denies dysuria or hematuria. SKIN: Denies rash or itching. MUSCULOSKELETAL: Denies back pain, joint pain, or myalgia. NEUROLOGIC: Reports of lightheadedness All other systems reviewed are negative, except as documented in HPI. Exam Const: General: cooperative, healthy appearing, comfortable and overweight Orientation/consciousness: oriented to person, oriented to place and oriented to time Resp: Effort & Inspection: normal respiratory effort Cardio: Rate: regular rate Rhythm: regular rhythm Heart sounds: S1 normal heart sound present and S2 normal heart sound present GI: Inspection: normal to inspection (Gravid soft uterus) : External Female Exam: normal external appearance Speculum Exam - Vagina: normal appearance of the vagina Speculum Exam - Cervix: normal appearance of the cervix (Cervix 2-3/60/-2. AROM clear. FHT is reassuring)
[2025-04-26 07:30] VITALS: BP 115/73; PULSE 68; RESP 18; TEMP 36.9; O2SAT 98
[2025-04-26] MEDS: DOCUSATE SODIUM 100 MG CAPSULE PO (09:22)
[2025-04-26] MEDS: IBUPROFEN 600 MG TABLET PO (09:22)
[2025-04-26] MEDS: MULTIVIT/MIN/PREN/FOL AC/IRON TABLET 1 TAB PO (09:23)
--- NOTE | 2025-04-26 10:00 | PC.NURSE ---
Patient called out to request assistance. Baby was circumcised this morning and is sleepy. He is 36 weeks gestation and mom has been and supplementing with expressed breast milk. We attempted to wake baby and we placed him at the breast. He barely opened his mouth to attempt a latch. After several minutes of trying without any success, mom is supported to wait a little longer to see if baby wakes up or to feed pumped milk now and offer the breast first again at the next feeding. Patient states that she will call out today for feeding assistance. Parents educated on infant behavior after circ and in the immediate period. Handout given about late infants. Primary RN updated.
[2025-04-26 16:00] VITALS: BP 102/73; PULSE 76; RESP 20; TEMP 36.8; O2SAT 98
[2025-04-29 09:13] VITALS: BP 115/74; PULSE 76; RESP 18; TEMP 36.6; O2SAT 100
== END 2025-04-26 17:40 | disposition home or self-care (01) | DRG 807 ==
LOC: ANHLDR 19:11 → ANHOB2 20:55
PROVIDERS: Admitting Provider Obstetrics & Gynecology; PCP Physician Assistant; Visit Provider Obstetrics & Gynecology
DX: O14.04 Mild to moderate pre-eclampsia, complicating childbirth (principal); Z37.0 Single live birth; Z3A.36 36 weeks gestation of pregnancy; O60.14X0 Preterm labor third trimester with preterm delivery third trimester, not applicable or unspecified; O77.0 Labor and delivery complicated by meconium in amniotic fluid; O70.0 First degree perineal laceration during delivery
CPT/HCPCS: 36415; 80053; 85014; 85018; 85025; 86593; 86850; 86900; 86901; A9270; J0290; J2405; J2590; J2795; J7120